=== PATIENT | female | born 1955 | race Caucasian/White ===

== ENCOUNTER → 2017-01-04 | Outpatient (CLI) | payer MEDICARE ==
[2017-01-04 15:05] VITALS: BP 127/79; PULSE 85; RESP 18; TEMP 98.3
--- NOTE | 2017-01-05 10:58 | P.PN ---
Subjective This is follow-up visit for this patient with a history of severe and chronic low back pain secondary to failed back surgery syndrome , Lumbar area , and had intrathecal pain pump implanted several years ago and she is currently on intrathecal morphine , A few weeks ago , she was seen in the pain clinic and she is scheduled to have thoracic medial branch block, because patient is Complaining of severe mid back pain on top of her low back pain, patient reported that her pain is constant and increases with any Activity, she is concerned about her copayment for the procedure, she has to pay 20% copayment, and financially she cannot Afford to pay 20% of the cost, and she is questioning if he can do something else to help her mid back pain Patient denies any side effects of the medication, denies excessive drowsiness or sleepiness, denies suicidal ideation, and reports that the current pain medication is NOT helping To control the pain and improve activity of daily livin Physical Examinations : 1-Constitutiona : Cooperative , not in acute distress . 2-HEENT : nech ; supple , no Lymphadenopathy , no Thyromegaly , normal thyroid size . eyes : no ptosis , no icterus, no photophobia . ENT : normal of hearing , normal oropharynx , no Thrush . 3- Respiratory : Chest clear to auscultations Bilaterally , no wheezing , no Rhonchi . 4- Cardiovascular : regular rate and rhythem , S1 , S2 , no S3 , no S4. 5- Gastrointestinal : abdomen soft no tenderness , bowel sounds positive all four quadrents , no organomegally . 6- Genitourinary : Defferred . 7- neurologic : Cranial nerve II to XII intact , no focal neurological deffecit . 8-psychatric : alert , oriented X 3 , appropriate affect , intact judgment and insight . 9-Lymphatic : no Lymphadenopathy . 10- musculoskeltal : exams of the cervical spine = motor strength normal bilateral upper extremities facet loading test cervical area positive. Exams of the thoracic spine = positive facet loading test noted on upper thoracic levels right side> left side exams of the Lumber spine = motor strength lower extremities ,thigh and legs .4-5/5 deep tendon reflexes : normal Knee Jerk , normal ankle Jerk . lumber facet Loading Test positive strait leg raising test positive at 30 degree , RT ,LT , Fabere test positive RT and positive LT . Range of motion: Range of motion in flexion of the lumbar spine 30 degrees Range of motion range of motion of extension of the lumbar spine 10 Sever tenderness over the Sacroiliac joint on the Right , and Left side Assessment and plan = - Chronic low back pain secondary to failed back surgery syndrome lumbar area Mid back pain secondary to thoracic spondylosis - chronic and current use of high-risk medication (Opioids). Patient will be good candidate to have thoracic diagnostic medial branch block, but she is concerned about the cost and the Copayment for the procedure, and financially she cannot afford the, and discussed with the patient the option of increasing The intrathecal pain medication, The intrathecal pain pump analyzed= patient had morphine sulfate 15 mg per mL and , morphine daily 6.59 mg per day Bupivacaine 7 mg per mL and patient receiving Cipro 07 mg per day. Patient had residual volume of 25 ML I increased the dose to morphine sulfate 7.2 mg /day and bupivacaine to 3,36 milligrams per day The increase of her daily dose of 9% and patient will follow up with the pain clinic in 2 months Objective - Vital Signs Vital signs: Vital Signs Temp 98.3 F 01/04/17 14:54 Pulse 85 01/04/17 14:54 Resp 18 01/04/17 14:54 BP 127/79 01/04/17 14:54 Pulse Ox Intake & Output 01/04/17 01/05/17 01/05/17 18:59 06:59 18:59 Weight 74.843 kg
== END | disposition home or self-care (01) ==
LOC: PNWHC3 14:28
PROVIDERS: ATTEND Specialist
DX: M96.1 Postlaminectomy syndrome, not elsewhere classified (principal); M47.894 Other spondylosis, thoracic region; Z96.89 Presence of other specified functional implants; Z79.891 Long term (current) use of opiate analgesic
CPT/HCPCS: 99211

== ENCOUNTER → 2017-01-17 | Outpatient (CLI) | payer MEDICARE ==
[2017-01-17 12:27] VITALS: BP 125/66; RESP 16; TEMP 98.7
--- NOTE | 2017-01-17 12:51 | P.PN ---
Progress Note - Text Patient returns for followup for chronic low back and mid-back pain with radiation to both legs secondary to lumbar postlaminectomy syndrome. Patient's pump recently increased 9% by Dr. Coleman at last visit because patient is still having mid-back pain and cannot afford to undergo thoracic MBB. Patient continues on IT pump medications (Dilaudid/bupivacaine) and oxycodone IR for pain with only some relief. Patient denies adverse drug effects from medications. Today, pt denies new-onset weakness, bowel/bladder incontinence, or any other signs or symptoms of cauda equina syndrome. There are no signs of acute intoxication, and no indications of medication diversion or overuse. In addition to above, 13-point review of systems is also negative for chest pain , shortness of breath, changes in vision, changes in hearing, new onset weakness , abdominal pain, diarrhea, extreme fatigue, malaise, fever, skin changes, homicidal or suicidal ideation, or bowel or bladder incontinence. Vital Signs: Reviewed in EMR Gen: WDWN, AAOx3, NAD HEENT: NCAT, EOMI, hearing grossly normal Pulm: resp unlabored Abd: soft, NT, ND Neck: supple, trachea midline ROM in flexion thoracic spine: reduced ROM in extension thoracic spine: reduced Thoracic paravertebral tenderness: + Thoracic facet tenderness: + bilateral Neuro: CN II-XII grossly intact, muscle strength lower extremities PRESERVED Imaging: Reviewed in EMR Assessment: 1. thoracic spondylosis 2. postlaminectomy syndrome 3. chronic pain syndrome Plan: 1. Explanation: Opioid and psychological risk scores were reviewed. Diagnoses , prognoses, and multiple treatment options including but not limited to physical therapy, interventional therapies, adjuvant medical therapies, narcotic medication therapies, and surgery were discussed with the patient and all questions were answered to the patient's satisfaction. 2. Opioid agreement: Patient has previously signed narcotic agreement, and was orally counseled to not overuse, abuse, divert, or cell medications, and to take them as prescribed by only 1 healthcare provider. The patient was also counseled to store opioid medications in a safe and preferably locked location. Patient was also counseled against driving or operating heavy equipment while using narcotic medications and also to not use alcohol or any illicit or recreational drugs. The patient verbalized understanding that lack of compliance with any of the above and likely result in failure to renew narcotic prescriptions, possible discharge from the clinic, and possible legal ramifications thereafter if indicated. 3. Counseling: The patient was counseled extensively on BODY MASS INDEX, EXERCISE. Specifically, the patient was instructed regarding the importance of obesity, and exercise in the context of both chronic pain and overall health. 4. Procedures: none for now 5. Consultations: None 6. Investigations: None 7. Medications: will leave intrathecal pump at same dose and change oxycodone 30 mg q6h to Dilaudid 8 mg po q6h for breakthrough pain 8. Disposition: f/u for pump refill in next 4 weeks PQRS measures: 1-Patient's medications are documented in the chart. 2-Tobacco use is negative 3-Patient has not had a pneumococcal vaccine. 4-Advanced care planning discussed, patient unable to give. 5-Opioid contract signed with the patient. 6-Pain positive, follow-up visit or procedure scheduled 7-Patient's blood pressure measured and documented, and within normal limits. 8-Patient's weight was measured, and body mass index within the normal limits. 9-Patient WAS NOT identified as an unhealthy alcohol user.
[2017-01-17 13:26] VITALS: PULSE 72
== END | disposition home or self-care (01) ==
LOC: PNWHC3 12:09
PROVIDERS: ATTEND Anesthesiology
DX: G89.29 Other chronic pain (principal); Z79.891 Long term (current) use of opiate analgesic; M47.894 Other spondylosis, thoracic region; M96.1 Postlaminectomy syndrome, not elsewhere classified; Z71.3 Dietary counseling and surveillance
CPT/HCPCS: 80307; G0463; 80346; 80364; 99211

== ENCOUNTER → 2017-02-16 | Day surgery (SDC) | payer MEDICARE ==
[2017-02-16 13:35] VITALS: BP 143/64; PULSE 80; RESP 18; TEMP 99
--- NOTE | 2017-02-16 14:13 | P.PN ---
Progress Note - Text PROCEDURE: Intrathecal pain pump analysis, programming and reprogramming, and intrathecal pain pump refill. PREOPERATIVE DIAGNOSES: 1. near empty intrathecal pain pump time for refill. 2. opioid tolerance 3. chronic pain syndrome POSTOPERATIVE DIAGNOSES: 1. near empty intrathecal pain pump time for refill. 2. opioid tolerance 3. chronic pain syndrome ANESTHESIA: None. CONDITION: Stable. INDICATION: This is a 61-year-old patient with a long history of chronic pain secondary to postlaminectomy syndrome Patient previously had an intrathecal pump placed, which is now close to empty, and patient presents for refill today. Patient denies any side effects of the intrathecal medication, including new weakness, new numbness, excessive drowsiness or sleepiness, nausea/vomiting , weight gain, or night sweats. Patient also denies suicidal ideation, and reports that the current pain medication is helping control the chronic pain and improve the patient's activities of daily living. DESCRIPTION: The intrathecal pain pump was analyzed and showed that the patient currently has reservoir volume of [4.5] mL. The patient is receiving intrathecal Morphine sulfate PF at concentration [15] mg/ ml, and bupivacaine PF at concentration [7] mg/ml. Patient receiving daily dose of Morphine Sulfate [7.2] mg/day and bupivacaine [3.36] mg/day. The location of the pump (right buttock) was prepped with chlorhexidine x3. Then, the 22-gauge needle from the [employer] kit was advanced through the pump port. Total of [10] ml was removed from the pump, and it was refilled with the new medication total volume of [40] ml of a solution containing morphine sulfate at concentration [15] mg /ml and bupivacaine at concentration [7] mg/ml. The patient will continue with the same daily dose morphine [7.2] mg/day and bupivacaine [3.34] mg/day. Patient got little relief from oral hydromorphone, so will change to oral morphine 30 mg #120 with one refill. Patient will follow up for ITP refill in 8 weeks. Residual volume expected much less than actual volume (4.5 vs. 10 ml) today; please evaluate at next refill.
== END ==
LOC: PNWHC3 12:59
PROVIDERS: ATTEND Anesthesiology
DX: Z45.49 Encounter for adjustment and management of other implanted nervous system device (principal); G89.4 Chronic pain syndrome; Z79.891 Long term (current) use of opiate analgesic
CPT/HCPCS: 62370

== ENCOUNTER → 2017-02-22 | Outpatient (CLI) | payer MEDICARE ==
--- NOTE | 2017-02-24 07:45 | MM ---
Reason for exam: screening (asymptomatic). Last mammogram was performed 2 years and 3 months ago. History: Patient is postmenopausal and has history of endometrial cancer at age 25. Family history of breast cancer in mother at age 68. Took estrogen for 8 months beginning at age 20. Physical Findings: A clinical breast exam by your physician is recommended on an annual basis and results should be correlated with mammographic findings. MG 3D Screening Mammo W/Cad Bilateral CC and MLO view(s) were taken. Prior study comparison: November 19, 2014, bilateral MG screening mammo w CAD. June 19, 2013, bilateral digital screening mammo w/CAD. August 26, 2011, bilateral digital screening mammo w/CAD. May 22, 2010, bilateral digital screening mammogram. The breast tissue is heterogeneously dense. This may lower the sensitivity of mammography. No significant changes when compared with prior studies. ASSESSMENT: Negative, BI-RAD 1 RECOMMENDATION: Routine screening mammogram of both breasts in 1 year. Manage on a clinical basis with regard to right breast pain.
== END | disposition home or self-care (01) ==
LOC: RADMAMWWP 14:22
PROVIDERS: ATTEND Internal Medicine
DX: Z12.31 Encounter for screening mammogram for malignant neoplasm of breast (principal)
CPT/HCPCS: 77063; G0202

== ENCOUNTER → 2017-03-30 | Outpatient (CLI) | payer MEDICARE ==
[2017-03-30 12:02] VITALS: BP 172/92; PULSE 93; RESP 16
--- NOTE | 2017-03-31 09:48 | P.CONS ---
History of Present Illness - Reason for Consult Consult date: 03/30/17 - History of Present Illness This is a follow-up visit for this 61 years old female with a chronic history of severe low back pain, diagnosed with opioid Tolerance, failed back surgery syndrome and lumbar area, currently on intrathecal pain pump infusion, and she was brought to the pain clinic for evaluation because patient reported that she had to use her low back pain significantly, and she she feels very irritable, and she is concerned about withdrawal symptoms, she'll been on continuous infusion of intrathecal pain medications, morphine sulfate intrathecally 7.2 milligrams daily, and bupivacaine 3,34 mg daily, fish was getting MS IR 30 mg every 6 hours for breakthrough pain , she feels the current pain medication is not helping her at all, she had one episode when she fell and she did not have control over her lower extremities, currently she is able to walk and ambulate without any difficulty, and she had no motor deficit Past Medical History Past Medical History: Cancer, CVA/TIA, Liver Disease, Musculoskeletal Disorder, Osteoarthritis (OA) Additional Past Medical History / Comment(s): hx. hepatitis B at age 15, DDD, hx cervical cancer,several mini strokes History of Any Multi-Drug Resistant Organisms: None Reported Past Surgical History: Appendectomy, Back Surgery, Bowel Resection, Cholecystectomy, Hysterectomy Additional Past Surgical History / Comment(s): pain pump, mutiple female surgeries Past Anesthesia/Blood Transfusion Reactions: No Reported Reaction Past Psychological History: Anxiety Smoking Status: Never smoker Past Alcohol Use History: Occasional Additional Past Alcohol Use History / Comment(s): quit smoking 32 yrs ago Past Drug Use History: None Reported - Past Family History Mother Family Medical History: Cancer Additional Family Medical History / Comment(s): breast Sister(s) Family Medical History: Cancer, Deep Vein Thrombosis (DVT), Pulmonary Embolus Additional Family Medical History / Comment(s): ovarian ca, skin ca Father Family Medical History: Cancer Additional Family Medical History / Comment(s): skin Medications and Allergies Home Medications Medication Instructions Recorded Confirmed Type Intrathecal Opoid Pain Pump INTRATHECA CONTINUOUS 04/17/14 06/16/16 History clonazePAM [KlonoPIN] 1 mg PO DAILY PRN 07/30/15 03/30/17 History Citalopram Hydrobromide [CeleXA] 10 mg PO DAILY 06/16/16 03/30/17 History Lisinopril-Hctz 10-12.5 mg 1 tab PO DAILY 12/01/16 03/30/17 History [Zestoretic 10-12.5] Allergies Allergy/AdvReac Type Severity Reaction Status Date / Time tetracycline [Tetracycline] Allergy Nausea & Verified 03/30/17 11:48 Vomiting Physical Exam Vitals: Vital Signs Pulse Resp BP Pulse Ox 03/30/17 11:52 93 16 172/92 95 Physical Examinations : 1-Constitutiona : Cooperative , not in acute distress . 2-HEENT : nech ; supple , no Lymphadenopathy , normal thyroid size . eyes : no ptosis , no icterus, no photophobia . ENT : normal of hearing , normal oropharynx , no Thrush . 3- Respiratory : Chest clear to auscultations Bilaterally , no wheezing , no Rhonchi . 4- Cardiovascular : regular rate and rhythem , S1 , S2 , no S3 , no S4. 5- Gastrointestinal : abdomen soft no tenderness , bowel sounds positive all four quadrents , no organomegally . 6- Genitourinary : Defferred . 7- neurologic : Cranial nerve II to XII intact , no focal neurological deffecit . 8-psychatric : alert , oriented X 3 , appropriate affect , intact judgment and insight . 9-Lymphatic : no Lymphadenopathy . 10- musculoskeltal : exams of the Lumber spine = normal moter stegnth lower extremities ,thigh and legs .5/5 deep tendon reflexes : normal Knee Jerk , normal ankle Jerk . positive lumber facet Loading Test strait leg raising test positive at 30 degree , RT ,LT , Fabere test positive RT and positive LT . Sever tenderness over the Sacroiliac joint on the Right , and Left side Assessment and Plan Plan: Assessment and plan = - Chronic low back pain secondary to lumbar degenerative disc disease , lumbar spondylosis with facet arthropathy without myelopathy , failed back surgery syndrome lumbar, is currently patient reporting increase of her low back pains, recurrent breakthrough medication is not helping -chronic and current use of high-risk medication (Opioids). The patient was counseled about risk of opioid use, psychological risk associated with opioids discussed with the patient, body mass index and exercise. Patient signed the narcotic agreement , and was orally counseled not to overuse , abuse , divert, or sell medications ,and take them as prescribed only , and the patient was counseled against driving and while you are using the narcotic medication also not to use alcohol or any illicit drugs and the patient verbalized understanding that lack of compliance and could result in failure to renew narcotics prescriptions and possible discharge from the clinic - diagnoses, prognosis, and treatment options including but not limited to physical therapy, surgical interventions, interventional therapies and medication management including narcotics and adjuvant medication were discussed with the patient and all questions answered to the patient's satisfaction. -medication managements= discontinue MSIR , start patient on Oxycodon 30 mg every 6 hours -procedure= discussed with patient the need to do a dye study, evaluate the intrathecal pump. There is any leakage or disconnection in the catheter, patient is concerned about the cost of the procedure and she cannot afford the copayment for the test, she preferred to wait the results of the changing of that pain medication, he gets reasonable pain relief then we don't have to do with a dye study otherwise if she continued to have pain , we have to do a dye study Time with Patient: Less than 30
== END | disposition home or self-care (01) ==
LOC: PNWHC3 11:26
PROVIDERS: ATTEND Specialist
DX: M51.36 Other intervertebral disc degeneration, lumbar region (principal); M47.816 Spondylosis without myelopathy or radiculopathy, lumbar region; M46.86 Other specified inflammatory spondylopathies, lumbar region; Z79.899 Other long term (current) drug therapy; Z88.1 Allergy status to other antibiotic agents; Z86.73 Personal history of transient ischemic attack (TIA), and cerebral infarction without residual deficits
CPT/HCPCS: 99211

== ENCOUNTER → 2017-04-13 | Day surgery (SDC) | payer MEDICARE ==
[2017-04-13 11:56] VITALS: BP 145/74; PULSE 84; RESP 18; TEMP 98.5
--- NOTE | 2017-04-13 12:59 | P.PCN ---
Date of Procedure: 04/13/17 Preoperative Diagnosis: Postoperative Diagnosis: Procedure(s) Performed: OPERATION: Intrathecal pain pump analysis, programming and reprogramming, and intrathecal pain pump refill. PREOPERATIVE DIAGNOSES: 1. near empty intrathecal pain pump time for refill. 2. 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 near empty intrathecal pain pump time for refill. 2. 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 CONDITION: Stable. Description of the procedure; Intrathecal pain pump analysed ,it showed patient currently had reservoir volume 13.2 mL. The patient is receiving medication .PF morphine sulfate [ 15 ] mg/ ml, and bupivacaine concentration [ 7 ] mg/ml. Patient receiving daily dose of morphine sulfate 7,2 mg/day and bupivacaine [ 3.3 ] mg/day. Pain is well controlled , patient using medication for breakthrough pain oxycodone 30 mg every 6 hours orally . The location of the pump ( Right Buttuck ) Prepped with chlorhexidine x3 , then using 22-gauge needle [employer] kit advanced through the pump port, Total of [ 14 ] ml removed from the pump, the pump refills with the new medication total volume [ 40 ] ml . Patient continued to have pain all the time her pain 8/10 most of the time, and is not managed with the oxycodone The concentration of morphine sulfate 15 mg /ml , and the bupivacaine concentration [ 7 ] mg/ml. The patient will continue to see the daily dose morphine sulfate 8 mg/day and bupivacaine [ 3.7 ] mg/day and patient will follow up with the pain clinic in 3 months. Prescription refill for oxycodone 30 mg every 6 hours dispensed 150 with 2 refills, Neurontin 300 mg 3 times a day dispense 90 with 2 refill, Zanaflex 4 mg every 6 hours Asians reported that she continued to have pain all the time I discussed with the patient ,the need to do the dye study ,but she is concerned about the cost ([employer] payments ), and she prefer not to do it" , , ,I increased dose of intrathecal medication equal to 11%, this should improve her pain control, and the next visit we will change the intrathecal pain medication to fentanyl, the bupivacaine Implants: Indications for Procedure: Operative Findings: Description of Procedure:
== END ==
LOC: PNWHC3 11:12
PROVIDERS: ATTEND Specialist
DX: M96.1 Postlaminectomy syndrome, not elsewhere classified (principal); Z45.1 Encounter for adjustment and management of infusion pump; Z79.891 Long term (current) use of opiate analgesic
CPT/HCPCS: 62370

== ENCOUNTER → 2017-06-08 | Day surgery (SDC) | payer MEDICARE ==
[2017-06-08 14:18] VITALS: BP 157/83; PULSE 88; RESP 16; TEMP 98.4
--- NOTE | 2017-06-08 14:49 | P.PN ---
Progress Note - Text PROCEDURE: Intrathecal pain pump analysis, programming and reprogramming, and intrathecal pain pump refill. PREOPERATIVE DIAGNOSES: 1. near empty intrathecal pain pump time for refill. 2. opioid tolerance 3. chronic pain syndrome POSTOPERATIVE DIAGNOSES: 1. near empty intrathecal pain pump time for refill. 2. opioid tolerance 3. chronic pain syndrome ANESTHESIA: None. CONDITION: Stable. INDICATION: This is a 61-year-old patient with a long history of chronic pain secondary to postlaminectomy syndrome Patient previously had an intrathecal pump placed, which is now close to empty, and patient presents for refill today. Patient denies any side effects of the intrathecal medication, including new weakness, new numbness, excessive drowsiness or sleepiness, nausea/vomiting , weight gain, or night sweats. Patient also denies suicidal ideation, and reports that the current pain medication is helping control the chronic pain and improve the patient's activities of daily living. DESCRIPTION: The intrathecal pain pump was analyzed and showed that the patient currently has reservoir volume of [10.1] mL. The patient is receiving intrathecal Morphine sulfate PF at concentration [15] mg/ ml, and bupivacaine PF at concentration [7] mg/ml. Patient receiving daily dose of Morphine Sulfate [8] mg/day and bupivacaine [ 3.5] mg/day. The location of the pump (right buttock) was prepped with chlorhexidine x3. Then, the 22-gauge needle from the [employer] kit was advanced through the pump port. Total of [12.9] ml was removed from the pump, and it was refilled with the new medication total volume of [40] ml of a solution containing fentanyl at concentration [200] mcg /ml and bupivacaine at concentration [4] mg/ml. The patient will be changed to daily dose fentanyl [25] mcg/day and bupivacaine [0.5] mg/day. Bridge bolus will complete in approximately 16 hours ; I instructed patient to have a friend or family member near her at 7 AM tomorrow morning in case she has any issues with the new intrathecal fentanyl. Patient given prescriptions for oxycodone 30 mg #120 with one refill, along with gabapentin and tizanidine both with five refills. Patient will follow up for ITP adjustment in 1-2 weeks.
== END ==
LOC: PNWHC3 12:58
PROVIDERS: ATTEND Anesthesiology
DX: G89.4 Chronic pain syndrome (principal); Z45.1 Encounter for adjustment and management of infusion pump; M96.1 Postlaminectomy syndrome, not elsewhere classified; Z79.891 Long term (current) use of opiate analgesic
CPT/HCPCS: 62370

== ENCOUNTER → 2017-06-21 | Outpatient (CLI) | payer MEDICARE ==
[2017-06-21 12:17] VITALS: BP 167/95; PULSE 87; RESP 16; TEMP 98.4
--- NOTE | 2017-06-21 13:16 | P.PN ---
Progress Note - Text This is a 61-year-old female with history of failed back surgery syndrome and multiple areas of severe pain. The patient fell and broke her left clavicle about 2 months ago. She has intrathecal opioid pump that was recently changed to diffuse fentanyl and bupivacaine. Currently she gets 25 g of fentanyl every day. The patient states that her pain is out of control and she still uses oxycodone 30 mg 4 times a day. She still has a prescription to be picked up from the pharmacy tomorrow as she states. Neuro exam of the lower extremities showed areflexia and muscle strength to 4 out of 5 for knee flexion and extension ankle flexion and extension and hip flexion bilaterally and symmetrically. Today I will increase the infusion rate of fentanyl to 30 g over 24 hours I'll give her a bolus of 5 g of fentanyl over 2 hours. If her pain continues to be a problem then I might need to do a pump dye study and an MRI of the lumbar spine. We will see the patient on 07/11/2017.
== END ==
LOC: PNWHC3 11:28
PROVIDERS: ATTEND Anesthesiology
DX: R52 Pain, unspecified (principal)
CPT/HCPCS: 99211

== ENCOUNTER → 2017-07-11 | Outpatient (CLI) | payer MEDICARE ==
[2017-07-11 12:08] VITALS: BP 135/83; PULSE 90; RESP 16; TEMP 97.9
--- NOTE | 2017-07-11 14:17 | P.PN ---
Subjective This is follow-up visit for this 61 years old female with a chronic history of severe back pain secondary to failed back surgery syndrome lumbar area, she had the intrathecal pain pump, and she is currently on continuous infusion of fentanyl 30 g per day and bupivacaine 0.6 mg per day, which was increased from that before and patient reported that she has some improvement after the increase that is done last visit, he continued to have significant amount of pain especially in the low back area, denies any motor or sensory deficit she denies any change in the bowel movement or urination, and she is here today to have intrathecal pain pump dose adjusted, intrathecal pain pump analyzed showed patient currently on fentanyl concentration 200 g per mL and bupivacaine concentration 4 mg per mL, receiving a daily dose of fentanyl 30 g per day and bupivacaine 0.6 mg per day, after I interrogated the pump I increased the daily dose of fentanyl to 14 g per day and increase the bupivacaine, 0.79 mg /day . Patient already had an appointment scheduled for intrathecal pain pump refill in August 2017, and she will be seen in the pain clinic today on the pump refill Objective - Vital Signs Vital signs: Vital Signs Temp 97.9 F 07/11/17 12:04 Pulse 90 07/11/17 12:04 Resp 16 07/11/17 12:04 BP 135/83 07/11/17 12:04 Pulse Ox 96 07/11/17 12:04 Intake & Output 07/10/17 07/11/17 07/11/17 18:59 06:59 18:59 Weight 72.575 kg
== END ==
LOC: PNWHC3 11:36
PROVIDERS: ATTEND Specialist
DX: M54.9 Dorsalgia, unspecified (principal); Z79.899 Other long term (current) drug therapy
CPT/HCPCS: 62367

== ENCOUNTER → 2017-08-31 | Day surgery (SDC) | payer MEDICARE ==
[2017-08-31 13:27] VITALS: BP 108/56; PULSE 75; RESP 16
--- NOTE | 2017-08-31 14:01 | P.PCN ---
Date of Procedure: 08/31/17 Procedure(s) Performed: OPERATION: Intrathecal pain pump analysis, programming and reprogramming, and intrathecal pain pump refill. PREOPERATIVE DIAGNOSES: 1. near empty intrathecal pain pump time for refill. 2. 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 near empty intrathecal pain pump time for refill. 2. 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 CONDITION: Stable. Description of the procedure; Intrathecal pain pump analysed ,it showed patient currently had reservoir volume[ ] mL. The patient is receiving medication Fentanyle 200 mcg / ml, and bupivacaine concentration 4 mg/ml. Patient receiving daily dose of fentanyl 40 g/day and bupivacaine 0,8 mg/ day. Pain is well controlled , patient using oxycodone 15 mg every 4-6 hours for breakthrough pain orally . Zanaflex 4 mg every 6 hours, Neurontin 300 mg every 8 hours The location of the pump ( Right Buttuck ) Prepped with chlorhexidine x3 , then using 22-gauge needle [employer] kit advanced through the pump port, Total of 25 ml removed from the pump, the pump refills with the new medication total volume [ 40 ] ml . The concentration of fentanyl 200 g /ml , and the bupivacaine concentration 4 mg/ml. The patient will continue to see the daily dose fentanyl 50 g/day , and bupivacaine 1mg/day this is 25 % increase , post patient reported that her pain increased and the current medication is not helping enough to control her pain , and patient will follow up with the pain clinic in 3 months. Prescription refill for oxycodone 30 mg every 4-6 hours dispense 150 with 2 refills given, Neurontin 300 mg every 8 hours dispense 90 with 2 refills given , and Zanaflex 4 mg every 6 hours dispense 120 with 2 refills
== END ==
LOC: PNWHC3 12:42
PROVIDERS: ATTEND Specialist
DX: Z45.49 Encounter for adjustment and management of other implanted nervous system device (principal); M96.1 Postlaminectomy syndrome, not elsewhere classified; Z79.891 Long term (current) use of opiate analgesic
CPT/HCPCS: 62370

== ENCOUNTER → 2017-11-17 | Day surgery (SDC) | payer MEDICARE ==
--- NOTE | 2017-11-17 12:38 | P.PCN ---
Date of Procedure: 11/17/17 Procedure(s) Performed: OPERATION: Intrathecal pain pump analysis, programming and reprogramming, and intrathecal pain pump refill. PREOPERATIVE DIAGNOSES: 1. near empty intrathecal pain pump time for refill. 2. 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 near empty intrathecal pain pump time for refill. 2. 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 CONDITION: Stable. Description of the procedure; Intrathecal pain pump analysed ,it showed patient currently had reservoir volume 20 mL. The patient is receiving medication Fentanyl 200 mcg/ ml, and bupivacaine concentration [ 4 ] mg/ml. Patient receiving daily dose of 50 mcg/day and bupivacaine 1 mg/day. Pain is well controlled , patient using medication for breakthrough pain [ oxycodone 30 mg q 4 h ] orally . The location of the pump ( Right Buttuck ) Prepped with chlorhexidine x3 , then using 22-gauge needle [employer] kit advanced through the pump port, Total of [ 21 ] ml removed from the pump, the pump refills with the new medication total volume [40 ] ml . The concentration fentanyl 200 mcg /ml , and the bupivacaine concentration [ 4] mg/ml. The patient will continue to see the daily dose fentanyl [50 ] mcg/day and bupivacaine [1 ] mg/day and patient will follow up with the pain clinic in 3 months. Refill for oxycodone 30 mg every 4 hours dispense 150 with 2 refill, Neurontin 300 mg every 8 hours thank you T with 2 refills and Zanaflex 4 mg every 6 hours dispense 120 with 2 refills and she will follow up in the pain clinic in 3 months
[2017-11-17 16:37] VITALS: BP 155/94; PULSE 84; RESP 16
== END ==
LOC: PNWHC3 11:25
PROVIDERS: ATTEND Specialist
DX: M96.1 Postlaminectomy syndrome, not elsewhere classified (principal); Z45.1 Encounter for adjustment and management of infusion pump; Z79.891 Long term (current) use of opiate analgesic
CPT/HCPCS: 62370

== ENCOUNTER → 2018-02-15 | Day surgery (SDC) | payer MEDICARE ==
[2018-02-15 12:28] VITALS: BP 146/76; PULSE 80; RESP 18; TEMP 98.7
--- NOTE | 2018-02-15 12:47 | P.PN ---
Progress Note - Text Progress Note Date: 02/15/18 PROCEDURE: Intrathecal pain pump analysis, programming and reprogramming, and intrathecal pain pump refill. PREOPERATIVE DIAGNOSES: 1. near empty intrathecal pain pump time for refill. 2. opioid tolerance 3. chronic pain syndrome POSTOPERATIVE DIAGNOSES: 1. near empty intrathecal pain pump time for refill. 2. opioid tolerance 3. chronic pain syndrome ANESTHESIA: None. CONDITION: Stable. INDICATION: This is a 62-year-old patient with a long history of chronic pain secondary to postlaminectomy syndrome Patient previously had an intrathecal pump placed, which is now close to empty, and patient presents for refill today. Patient denies any side effects of the intrathecal medication, including new weakness, new numbness, excessive drowsiness or sleepiness, nausea/vomiting , weight gain, or night sweats. Patient also denies suicidal ideation, and reports that the current pain medication is helping control the chronic pain and improve the patient's activities of daily living. DESCRIPTION: The intrathecal pain pump was analyzed and showed that the patient currently has reservoir volume of [17.5] mL. The patient is receiving intrathecal fentanyl PF at concentration [200] mcg/ ml , and bupivacaine PF at concentration [4] mg/ml. Patient receiving daily dose of fentanyl [50] mg/day and bupivacaine [1] mg/ day. The location of the pump (right buttock) was prepped with chlorhexidine x3. Then, the 22-gauge needle from the [employer] kit was advanced through the pump port. Total of [18.5] ml was removed from the pump, and it was refilled with the new medication total volume of [40] ml of a solution containing fentanyl at concentration [200] mcg /ml and bupivacaine at concentration [4] mg/ml. The patient will be increased 15% with daily dose fentanyl [57.5] mcg/day and bupivacaine [1.15] mg/day. Will reduce patient's oxycodone to 30 mg #120 with two refills and anticipate increasing pump and decreasing patient's oxycodone 30 mg again to #90 at next refill in three months. Will give gabapentin and tizanidine both with five refills. Patient is also requesting Ambien, last prescribed February 2017. Patient is on extremely high doses of intrathecal, oral opioid, benzodiazepine medications ( last from another provider) and I do not feel that we should continue prescribing this medication due to concern for excessive sedation and overmedication. Patient also counseled about risks of respiratory depression and utilizing both high-dose opioids and benzodiazepines and she verbalized understanding.
== END | disposition home or self-care (01) ==
LOC: PNWHC3 11:54
PROVIDERS: ATTEND Anesthesiology
DX: Z45.1 Encounter for adjustment and management of infusion pump (principal); G89.4 Chronic pain syndrome; M96.1 Postlaminectomy syndrome, not elsewhere classified
CPT/HCPCS: 62370

== ENCOUNTER → 2018-03-22 | Outpatient (CLI) | payer MEDICARE ==
[2018-03-22 13:13] VITALS: BP 123/76; PULSE 73; RESP 16
--- NOTE | 2018-03-22 14:46 | P.PN ---
Subjective Progress Note Date: 03/22/18 This is 62 years old female with a chronic history of severe low back pain diagnosed with failed back surgery syndrome and opioid tolerance, she is currently on intrathecal pain medication, fentanyl and bupivacaine, and she is getting oral pain medication oxycodone 30 mg every 6 hours when necessary, recently she had left upper extremity/wrist fracture, and the intensity of the pain increased significantly and she is here today to address the increased pain in her left upper extremity which is not managed with oral pain medication , I interrogated the intrathecal pain pump and it showed patient currently on continuous infusion of fentanyl and 57 g per day and bupivacaine 1.15: Milligrams per day, she denies any side effect of the medication she denies any excessive drowsiness or sleepiness and she is currently on Zanaflex 4 mg every 6 hours and oxycodone 30 mg every 6 hours, Neurontin 300 mg 3 times a day, she reported her pain level and was severe and she has trouble sleeping at night because of the intensity of the pain Objective - Vital Signs Vital signs: Vital Signs Temp Pulse 73 03/22/18 13:05 Resp 16 03/22/18 13:05 BP 123/76 03/22/18 13:05 Pulse Ox 100 03/22/18 13:05 Intake & Output 03/21/18 03/22/18 03/22/18 18:59 06:59 18:59 Weight 72.575 kg - Exam Physical Examinations : 1-Constitutiona : Cooperative , not in acute distress . 2-HEENT : nech ; supple , no Lymphadenopathy , normal thyroid size . eyes : no ptosis , no icterus, no photophobia . ENT : normal of hearing , normal oropharynx , no Thrush . 3- Respiratory : Chest clear to auscultations Bilaterally , no wheezing , no Rhonchi . 4- Cardiovascular : regular rate and rhythem , S1 , S2 , no S3 , no S4. 5- Gastrointestinal : abdomen soft no tenderness , bowel sounds , no organomegally . 6- Genitourinary : Defferred . 7- neurologic : Cranial nerve II to XII intact , no focal neurological deffecit . 8-psychatric : alert , oriented X 3 , appropriate affect , intact judgment and insight . 9-Lymphatic no Lymphadenopathy . 10- musculoskeltal : , Lumber spine = normal moter stegnth lower extremities ,thigh and legs .5/5 Assessment and Plan Plan: Assessment and plan= chronic low back pain secondary to, failed back surgery syndrome and lumbar area , opioid tolerance, and chronic pain syndrome Acute left wrist fracture chronic and current use of high-risk medication (opioids) Patient denies any side effects of the current pain medication and the current treatment/medication helping the patient to do activity of daily living , Patient report the current medication is not helping enough, I will increase the intrathecal pain pump to fentanyl 75 g per day , and bupivacaine 1.5 mg per day , which is equal to 30% increase from her previous dose , patient will continue to use oxycodone 30 mg every 6 hours, next visit we'll decrease the oxycodone to 90 per months Time with Patient: Less than 30
== END | disposition home or self-care (01) ==
LOC: PNWHC3 12:53
PROVIDERS: ATTEND Specialist
DX: G89.4 Chronic pain syndrome (principal); M96.1 Postlaminectomy syndrome, not elsewhere classified; S62.102A Fracture of unspecified carpal bone, left wrist, initial encounter for closed fracture; Z79.899 Other long term (current) drug therapy; Z79.891 Long term (current) use of opiate analgesic
CPT/HCPCS: 62368

== ENCOUNTER → 2018-05-10 | Day surgery (SDC) | payer MEDICARE ==
[2018-05-10 12:44] VITALS: PULSE 90; RESP 16
--- NOTE | 2018-05-11 14:47 | P.PCN ---
Date of Procedure: 05/10/18 Procedure(s) Performed: OPERATION: Intrathecal pain pump analysis, programming and reprogramming, and intrathecal pain pump refill. PREOPERATIVE DIAGNOSES: 1. near empty intrathecal pain pump time for refill. 2. 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 ANESTHESIA: None. CONDITION: Stable. Description of the procedure; Intrathecal pain pump analysed ,it showed patient currently had reservoir volume[ ] mL. The patient is receiving medication fentanyl PM 200 g/ ml, and bupivacaine concentration [4 ] mg/ml. Patient receiving daily dose of fentanyl 75 g/day and bupivacaine [1.5 ] mg/ day. Pain is well controlled , patient using medication for breakthrough pain oxycodone 30 mg every 6 hours orally . Zanaflex 4 mg every 6 hours, Neurontin 300 mg every 8 hours The location of the pump ( Right Buttuck ) Prepped with chlorhexidine x3 , then using 22-gauge needle [employer] kit advanced through the pump port, Total of 13 ml removed from the pump, the pump refills with the new medication total volume [40 ] ml . The concentration of fentanyl 200 g /ml , and the bupivacaine concentration [ 4] mg/ml. Patient reported that her pain level is extremely high and the intensity of the pain interfering with her quality of life and the breakthrough medication is not helping to control her pain, for this reason I will increase the dose of intrathecal medication to fentanyl 100 g every day, and bupivacaine 1.9 mg per day This is equals 33% increase, Patient given prescription refill for oxycodone 30 mg every 6 hours dispense 120 with one refill and Zanaflex 4 mg every 6 hours dispensed 120 with one refill Neurontin 300 mg every 8 hours dispense 90 with 1 refill
== END ==
LOC: PNWHC3 11:50
PROVIDERS: ATTEND Specialist
DX: Z45.49 Encounter for adjustment and management of other implanted nervous system device (principal); Z79.891 Long term (current) use of opiate analgesic; M96.1 Postlaminectomy syndrome, not elsewhere classified
CPT/HCPCS: 62370

== ENCOUNTER → 2018-07-12 | Day surgery (SDC) | payer MEDICARE ==
[2018-07-12 13:05] VITALS: BP 160/83; PULSE 78; RESP 16
--- NOTE | 2018-07-12 14:41 | P.PCN ---
Date of Procedure: 07/12/18 Procedure(s) Performed: PROCEDURE: Intrathecal pain pump analysis, programming and reprogramming, and intrathecal pain pump refill. PREOPERATIVE DIAGNOSES: 1. near empty intrathecal pain pump time for refill. 2. opioid tolerance 3. chronic pain syndrome POSTOPERATIVE DIAGNOSES: 1. near empty intrathecal pain pump time for refill. 2. opioid tolerance 3. chronic pain syndrome ANESTHESIA: None. CONDITION: Stable. INDICATION: This is a 62-year-old patient with a long history of chronic pain secondary to postlaminectomy syndrome Patient previously had an intrathecal pump placed, which is now close to empty, and patient presents for refill today. Patient denies any side effects of the intrathecal medication, including new weakness, new numbness, excessive drowsiness or sleepiness, nausea/vomiting , weight gain, or night sweats. Patient also denies suicidal ideation, and reports that the current pain medication is helping control the chronic pain and improve the patient's activities of daily living. She is complaining of increased pain in the upper back area, so she is complaining of the pummp pocket, the location in the right buttock bothering her . DESCRIPTION: The intrathecal pain pump was analyzed and showed that the patient currently has reservoir volume of [ 8.6] mL. The patient is receiving intrathecal fentanyl PF at concentration [200] mcg/ ml , and bupivacaine PF at concentration [4] mg/ml. Patient receiving daily dose of fentanyl [100] mg/day and bupivacaine [ 2 ] mg/day. The location of the pump (right buttock) was prepped with chlorhexidine x3.Then , the 22-gauge needle from the [employer] kit was advanced through the pump port.Total of [10] ml was removed from the pump, and it was refilled with the new medication total volume of [40] ml of a solution containing fentanyl at concentration [300] mcg /ml and bupivacaine at concentration [6] mg/ml. The patient will be increased 15% with daily dose fentanyl [115 ] mcg/day and bupivacaine [2.3] mg/day. Patient given prescription refill for oxycodone 30 mg every 6 hours dispensed 120 with 2 refills Next visit. We'll change the medication in the intrathecal pump to morphine sulfate, and bupivacaine, 4 for this combination was spread cephalad, and patient will get good coverage for the upper back area because she is complaining of increased thoracic pain, currently the pain in the thoracic area is not covered with a fentanyl, I explained to her that , currently there is nothing can be done to change the location of the pump in the right buttock area, the best option is to wait, and today it is the time , for the pump revision, at that time we can change the location of the pump from the buttock area to the abdomen Patient also counseled about risks of respiratory depression and utilizing both high-dose opioids and benzodiazepines and she verbalized understanding.
== END ==
LOC: PNWHC3 12:08
PROVIDERS: ATTEND Specialist
DX: G89.4 Chronic pain syndrome (principal); Z45.1 Encounter for adjustment and management of infusion pump; Z79.891 Long term (current) use of opiate analgesic
CPT/HCPCS: 62370

== ENCOUNTER → 2018-07-20 | Outpatient (CLI) | payer MEDICARE ==
--- NOTE | 2018-07-20 17:09 | US ---
EXAMINATION TYPE: US venous doppler duplex LE RT DATE OF EXAM: 07/20/2018 4:59 PM COMPARISON: NONE CLINICAL HISTORY: M79.661 Pain In Limb, R22.1 Swelling. No redness. Pt states knee and calf swelling today but not today. No hx of blood clots. On aspirin. SIDE PERFORMED: Right TECHNIQUE: The lower extremity deep venous system is examined utilizing real time linear array sonog sue with graded compression, doppler sonography and color-flow sonography. VESSELS IMAGED: External Iliac Vein (EIV) Common Femoral Vein Deep Femoral Vein Greater Saphenous Vein * Femoral Vein Popliteal Vein Small Saphenous Vein * Proximal Calf Veins (* superficial vessels) FINDINGS: Grayscale, color doppler, spectral doppler imaging performed of the deep veins of the lower extremities. There is normal flow, compressibility, vascular waveforms. IMPRESSION: NEGATIVE FOR DVT, RIGHT LOWER EXTREMITY.
== END | disposition home or self-care (01) ==
LOC: RADUSMAIN 16:36
PROVIDERS: ATTEND Internal Medicine
DX: M79.661 Pain in right lower leg (principal); R22.41 Localized swelling, mass and lump, right lower limb

== ENCOUNTER → 2018-12-21 | Day surgery (SDC) | payer MEDICARE ==
[2018-12-21 13:41] VITALS: BP 166/91; PULSE 75; RESP 16; TEMP 98.5
--- NOTE | 2018-12-22 18:18 | P.PCN ---
Date of Procedure: 12/21/18 Procedure(s) Performed: PROCEDURE: Intrathecal pain pump analysis, programming and reprogramming, and intrathecal pain pump refill. PREOPERATIVE DIAGNOSES: 1. near empty intrathecal pain pump time for refill. 2. opioid tolerance 3. chronic pain syndrome POSTOPERATIVE DIAGNOSES: 1. near empty intrathecal pain pump time for refill. 2. opioid tolerance 3. chronic pain syndrome ANESTHESIA: None. CONDITION: Stable. INDICATION: This is a 63-year-old patient with a long history of chronic pain secondary to postlaminectomy syndrome Patient previously had an intrathecal pump placed, which is now time to refill the pump. Patient denies any side effects of the intrathecal medication, including new weakness, new numbness, excessive drowsiness or sleepiness, nausea/vomiting, weight gain, or night sweats. Patient also denies suicidal ideation, and reports that the current pain medication is helping control the chronic pain and improve the patient's activities of daily living. DESCRIPTION: The intrathecal pain pump was analyzed and showed that the patient currently has reservoir volume of [29.8] mL. The patient is receiving intrathecal Dilaudid at concentration [6 ] mg/ ml, and bupivacaine PF at concentration [3] mg/ml. Patient receiving daily dose of Dilaudid PF [0.7] mg/day and bupivacaine [ 0.35] mg/day. Patient continued to have severe mid, and low back pain and also mid and upper back pain, and the current medication is not helping to control her pain for this reason , I will increase her daily dose of the medication , The location of the pump (right buttock) was prepped with chlorhexidine x3. Then, the 22-gauge needle from the [email or web address] kit was advanced through the pump port. Total of [29.5] ml was removed from the pump, and it was refilled with the new medication total volume of [40] ml of a solution containing Dilaudid at concentration [6] mg /ml and bupivacaine at concentration [3] mg/ml. I increased the daily dose Dilaudid [0.8] mg/day and bupivacaine [0.4] mg/day. Which is equal to 14% increase Also prescription refill for oxycodone 30 mg every 6 hours given dispense 120 with 2 refills and also prescription for Zanaflex 4 mg every 6 hours dispense 120 with primary Neurontin 300 mg every 8 hours dispense 90 with 2 refills Patient is living to [place] and the next few weeks, and she is going to stay over there for a few weeks for this reason she is asking if he can get her early prescription refill , for this reason I give patient early prescription refill, and she will follow up with the pain clinic in 3 months. - PQRS measures = - Patient's medications are documented in the chart. -Tobacco use is negative and counseling.Given. -Patient's has not received pneumococcal vaccine. -Advanced care planning discussed, patient not eligible. -Opiate contract signed. -Pain positive and follow-up visit/procedure is scheduled. -Patient's blood pressure measured [ 166/91 ] , and documented in the record ,and patient will follow up with the primary care. -Patient's weight was measured and body mass index (24 ),within the normal limits and counseling was done. and patient instructed to follow-up with the primary care physician. -Patient was not identified as an unhealthy alcohol user
== END ==
LOC: PNWHC3 12:57
PROVIDERS: ATTEND Specialist
DX: Z45.1 Encounter for adjustment and management of infusion pump (principal); M96.1 Postlaminectomy syndrome, not elsewhere classified; Z79.891 Long term (current) use of opiate analgesic
CPT/HCPCS: 62370; 99211

== ENCOUNTER → 2019-03-15 | Day surgery (SDC) | payer MEDICARE ==
[2019-03-15 12:14] VITALS: BP 148/77; PULSE 93; RESP 18
--- NOTE | 2019-03-15 13:00 | P.PCN ---
Date of Procedure: 03/15/19 Preoperative Diagnosis: Failed back surgery syndrome Near empty intrathecal opioid pump Postoperative Diagnosis: Failed back surgery syndrome Procedure(s) Performed: Intrathecal opioid pump refill Anesthesia: none Surgeon: Lola Shelton Pathology: none sent Condition: stable Disposition: no change Description of Procedure: This is a 63-year-old lady with history of multiple back surgeries with cervical and lumbar fusions. The patient's pain has been tolerable with her intrathecal hydromorphone infusion with bupivacaine. The patient also takes oral oxycodone and Zanaflex plus Neurontin. The patient's lower back pain has been doing well however she is having increasing upper back pain. The patient states that she has history of scoliosis. She denies any new paresthesia or weakness in the lower extremities and no change from baseline. By physical exam she is alert oriented 3 in no apparent distress. She has pain in her left eye due to corneal abrasion. Neuro exam of the lower extremities showed decreased right knee flexion and extension to 3 out of 5 and ankle flexion extension to 4 out of 5 normal muscle strength in the left side is decreased to 4 out of 5 bilaterally for knee flexion and extension and ankle flexion and extension. She has absent right knee reflex and decreased left knee reflex and absent ankle reflex bilaterally. She has significant tenderness in the thoracic paravertebral musculature and also in the cervical paravertebral musculature. Today I will renew the patient's oral opioids I'll order a thoracic spine two- view x-ray I will also do intrathecal Dilaudid pump refill. The patient leaned over the examination table skin over the pump in the right buttock area was prepped with Chlor[employer]Prep and draped in a sterile manner. I then used the [employer] needle to go through the central pump access port, and obtained a 29 MLS of the residual fluid. Then I injected 40 MLS of the new solution through a filter this new solution containing his Dilaudid 6 been transferred mL and bupivacaine 3 mg per mL. I then reprogrammed the pump to increase the rate of Dilaudid infusion to 0.9 mg per day, with no bolus. The patient tolerated procedure well. She will be seen for follow-up in 3 months from now.
== END ==
LOC: PNWHC3 11:55
PROVIDERS: ATTEND Anesthesiology
DX: M96.1 Postlaminectomy syndrome, not elsewhere classified (principal); Z98.1 Arthrodesis status
CPT/HCPCS: 62370

== ENCOUNTER → 2019-05-31 | Day surgery (SDC) | payer MEDICARE ==
[2019-05-31 12:57] VITALS: BP 151/72; PULSE 85; RESP 16
--- NOTE | 2019-06-01 13:31 | P.PCN ---
Date of Procedure: 05/31/19 Procedure(s) Performed: Preoperative Diagnosis: Failed back surgery syndrome Presence of intrathecal opioid pump Postoperative Diagnosis: Failed back surgery syndrome Procedure(s) Performed: Intrathecal opioid pump refill Anesthesia: none Surgeon: Mani Montelongo M.D. Pathology: none sent Condition: stable Disposition: no change Description of Procedure: This is a 63-year-old lady with history of multiple back surgeries with cervical and lumbar fusions. The patient's pain has been tolerable with her intrathecal hydromorphone infusion with bupivacaine. The patient also takes oral oxycodone and Zanaflex plus Neurontin. The patient's lower back pain has been doing well however she is having increasing upper back pain, which has been gradually improving with prior increases to intrathecal opioid pump. She denies any new paresthesia or weakness in the lower extremities and no change from baseline. At her last visit, we had ordered a thoracic spine x-ray, however the patient lost this prescription. Today I will renew the patient's oral opioids, reorder a thoracic spine two-view x-ray and perform intrathecal Dilaudid pump refill. The patient leaned over the examination table skin over the pump in the right buttock area was prepped with [employer] and draped in a sterile manner. I then used the [employer] needle to go through the central pump access port, and obtained a 28 MLS of the residual fluid. Then I injected 40 MLS of the new solution through a filter. This new solution containing Dilaudid 6 milligrams per mL and bupivacaine 3 mg per mL. I then reprogrammed the pump to increase the rate of Dilaudid infusion to 1 mg per day, and gave a 0.1 mg bolus over 15 minutes. The patient tolerated procedure well. She will be seen for follow-up in 3 months from now. Of note, her elective pump change date will be prior to her 3 month follow-up. I will discuss this with Dr. Santos and communicate with the patient regarding pump exchange.
== END | disposition home or self-care (01) ==
LOC: PNWHC3 12:06
PROVIDERS: ATTEND Anesthesiology
DX: Z45.1 Encounter for adjustment and management of infusion pump (principal); M96.1 Postlaminectomy syndrome, not elsewhere classified
CPT/HCPCS: 62370

== ENCOUNTER → 2019-07-17 | Outpatient (CLI) | payer MEDICARE ==
--- NOTE | 2019-07-17 12:16 | XR ---
EXAMINATION TYPE: XR thoracic spine 2V DATE OF EXAM: 07/17/2019 COMPARISON: NONE HISTORY: Pain Alignment is anatomic. There is no compression deformities. Vertebral body height and disc interspa tiffanie are maintained. Hypertrophic and degenerative change of the spine. Postsurgical change involving the lumbar spine. Appears to be a spinal catheter within the spinal column of the thoracic spine ext ending to the mid thoracic level. IMPRESSION: 1. Multilevel hypertrophic and degenerative disc disease.
== END | disposition home or self-care (01) ==
LOC: RADXRMAIN 11:47
PROVIDERS: ATTEND Anesthesiology
DX: M51.34 Other intervertebral disc degeneration, thoracic region (principal)
CPT/HCPCS: 72070

== ENCOUNTER 2019-08-29 10:47 | Day surgery (SDC) | payer MEDICARE ==
[2019-08-27 14:51] VITALS: BMI 24.3
[~2019-08-29 10:47] MED LIST: LACTATED RINGERS 1,000 ML IV SCH; LIDOCAINE 1% 20 ML VIAL (10MG/ML) FOR IV START INTRADERMA PRN; ONDANSETRON 4 MG/2 ML VIAL IVP ONE
[2019-08-29] MEDS ORDERED: diphenhydrAMINE 50 MG/ML 1 ML VIAL ONE (12:49)
[2019-08-29] MEDS ORDERED: KETAMINE 10 MG/ML 20 ML VIAL ONE (12:49)
[2019-08-29] MEDS ORDERED: MIDAZOLAM 2 MG/2 ML VIAL ONE (12:49)
[2019-08-29] MEDS ORDERED: fentaNYL (PF) 50 MCG/ML 2 ML AMP ONE (12:49)
[2019-08-29] MEDS ORDERED: PROPOFOL 10 MG/ML 20 ML VIAL IV ONE (12:49)
[2019-08-29] MEDS ORDERED: HYDROmorphone (PF) 1 MG/ML ONE (12:49)
--- NOTE | 2019-08-29 12:56 | P.GSHP ---
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 hepatitis B at age 15, DDD, hx cervical cancer,several mini strokes. Left rotator cuff injury mid October of 2017. Left wrist fx,bowel tumor-benign History of Any Multi-Drug Resistant Organisms: None Reported Past Surgical History: Appendectomy, Back Surgery, Bowel Resection, Cholec ystectomy, Hysterectomy Additional Past Surgical History / Comment(s): pain pump, mutiple female surgeries,cervical and lumbar fusions,ileac bone bone graft sites, LEFT CLAVICLE MAY 14 2017. Past Anesthesia/Blood Transfusion Reactions: No Reported Reaction Additional Past Anesthesia/Blood Transfusion Reaction / Comment(s): no problems with prior of blood transfusion Smoking Status: Former smoker - Past Family History Mother Family Medical History: Cancer Additional Family Medical History / Comment(s): breast Sister(s) Family Medical History: Cancer, Deep Vein Thrombosis (DVT), Pulmonary Embolus Additional Family Medical History / Comment(s): ovarian ca, skin ca Father Family Medical History: Cancer Additional Family Medical History / Comment(s): skin Medications and Allergies Home Medications Medication Instructions Recorded Confirmed Type Intrathecal Opoid Pain Pump 1 dose INTRATHECA CONTINUOUS 04/17/14 08/29/19 History Lisinopril-Hctz 10-12.5 mg 1 tab PO QAM 12/01/16 08/29/19 History [Zestoretic 10-12.5] Gabapentin [Neurontin] 300 mg PO TID #90 cap 02/15/18 08/29/19 Rx tiZANidine HCL [Zanaflex] 4 mg PO Q6HR PRN #120 tab 02/15/18 08/29/19 Rx Levothyroxine Sodium [Synthroid] 25 mcg PO QAM 03/22/18 08/29/19 History oxyCODONE HCL [oxyCODONE HCL (IR)] 30 mg PO Q6HR PRN #120 tab 07/12/18 08/29/19 Rx amLODIPine [Norvasc] 2.5 mg PO QAM 05/31/19 08/29/19 History Aspirin 81 mg PO DAILY 08/27/19 08/29/19 History Meloxicam [Mobic] 15 mg PO DAILY PRN 08/27/19 08/29/19 History Rosuvastatin Calcium [Crestor] 5 mg PO DAILY 08/27/19 08/29/19 History Allergies Allergy/AdvReac Type Severity Reaction Status Date / Time tetracycline [Tetracycline] AdvReac Nausea & Verified 08/29/19 11:09 Vomiting Surgical - Exam Vital Signs Temp Pulse Resp BP Pulse Ox 98.5 F 83 19 127/61 98 08/29/19 11:11 08/29/19 11:11 08/29/19 11:11 08/29/19 11:11 08/29/19 11:11 Physical Examinations : -Constitutiona : Cooperative , not in acute distress . -HEENT : nech : supple , no Lymphadenopathy , normal thyroid size . eyes : no ptosis , no icterus, no photophobia . ENT : normal of hearing , normal oropharynx , no Thrush . - Respiratory : Chest clear to auscultations Bilaterally , no wheezing , no Rhonchi . - Cardiovascula : regular rate and rhythem , S1 , S2 , no S3 , no S4.. - neurologic : Cranial nerve II to XII intact , no focal neurological deffecit . -psychatric : alert , oriented X 3 , appropriate affect , intact judgment and insight . -Lymphatic : no Lymphadenopathy . - musculoskeltal : Cervical Spine motor stregnth in the deltoid and biceps, normal right side , normal Left side motor stregnth biceps and the wrist extensors normal right side ,normal left side . motor stregnth in the triceps muscle . normal Right side , normal Left side Lumber spine moter stegnth lower extremities ,thigh and legs 5/5 Right side , 5/5 Left side Assessment and Plan Plan: Assessment and plan= 64 years old female with a history of chronic severe low back pain she had intrathecal pain pump implanted several years ago and she had end of life of intrathecal pain pump and she is here today to have intrathecal pain pump replaced. Time with Patient: Less than 30
[2019-08-29] MEDS ORDERED: BUPIVACAINE (PF) 0.5% 30 ML VIAL SQ ONE ×3 (13:17)
[2019-08-29] MEDS ORDERED: LIDOCAINE 2%-EPI 1:100,000 20 ML VIAL SQ ONE ×3 (13:17)
[2019-08-29] MEDS ORDERED: ceFAZolin 1,000 MG in SODIUM CHLORIDE 0.9% 1,000 ML IRRIGATION ONE (13:27)
[2019-08-29] MEDS ORDERED: LACTATED RINGERS 1,000 ML IV ONE (14:07)
[2019-08-29] MEDS ORDERED: KETOROLAC 30 MG/ML 1 ML VIAL IVP ONE (15:50)
[2019-08-29 15:54] VITALS: RESP 16; TEMP 97
--- NOTE | 2019-08-29 16:03 | P.PCN ---
Date of Procedure: 08/29/19 Procedure(s) Performed: Procedure= 1-replacement of permanent intrathecal infusion pump. 2-replacement of tunneling intrathecal catheter. Under fluoroscopy guidance 3-electronic analysis of intrathecal pain pump. And pump refill Preoperative diagnosis=1-postlaminectomy pain syndrome lumbar area. 2-opioid tolerance. 3-end of life of intrathecal pain pump ,time for replacement Postoperative diagnosis= 1-migration of intrathecal catheter, need for replacement of intrathecal catheter 2-end of life of intrathecal pain pump. 3-postlaminectomy pain syndrome lumbar area. 4-oh. Tolerance. Conditions= stable. Complications= none. Anesthesia= monitored anesthesia care. Estimated blood loss= 25 ML. Estimated blood loss= minimal. Anesthesia= general endotracheal intubation. Indication for the procedure= patient with a history of chronic pain and history of postlaminectomy pain syndrome , patient had intrathecal pain pump implanted several years ago on cheesy today to have intrathecal pain pump replacement. Procedure risk and benefits discussed with the patient she agreed with proceedi ng Description of the procedure= patient was identified in the preop holding area risks and benefits and alternatives of the procedure discussed with the patient and her and they agreed with proceeding, all the questions answered. Patient placed in prone position after induction of anesthesia, by anesthesia department, the patient was given 2 g of prophylactic antibiotics consisting of Ancef 2 g, the back and the buttock area prepped with the DuraPrep 3, then draped in the standard fashion, then under fluoroscopy guidance local infiltration of the skin and subcu interstitial with the local infiltration with mixture of lidocaine 2% with epi, then the right buttock area at the location of the pump we did the dissection and an IV was injected remove the old pump and when I tried to aspirate fluid from the catheter and there was no cerebrospinal fluid coming from the catheter, then I found that the catheter connector was not connected to the distal end of the intrathecal pain pump, was loose, and will attempt done to localize the distal end of the catheter I was not able to find it, for this reason , I felt that I have to replace the catheter, otherwise patient will continue to leak cerebrospinal fluid, and she will have continuous headache.if I don't remove the the old CATHETER and I have to replace it, then at L2-3 interlaminar space,, then a 17-gauge Tuohy needle advanced slowly at L2-3 and there was positive on the cerebrospinal fluid, then the entire thecal catheter advanced through the needle up to T9 level,, under live fluoroscopy, then after that the pain in the skin incision around the needle and then dissection to the fascia under the skin, hemostasis obtained using cautery, then first suture placed around the needle , then after that the stylet removed from the catheter, and anchored placed around the catheter, to prevent any movement of the catheter, then another incision made in the left buttock area to create a pocket for the intrathecal pain pump, and an adequate hemostasis obtained, using the cautery, then after that I created, between the catheter , and the Right buttock area, using a [employer] tunneling device, then after that the catheter passed from the L2-3 interlaminar space towards the right buttock area, and then after adequate flow of the cerebrospinal fluid coming through the catheter and then after that the catheter connected to the pump, then after that the pump pocket closed using 2-0 Vicryl for subcu 3-0 Vicryl and then, the midline incision was closed with 2-0 Vicryl and then pj, all this done after adequate hemostasis was obtained, a she'll was given priming bolus , and she was given initial bolus of 0.23 mg of Dilaudid and she will receive a daily dose of Dilaudid 0.23 mg per day, patient seen in the recovery room and evaluated and she was in stable condition and for the awake and she was discharged home in stable condition and she will follow up in the pain clinic in a few days. note = I was able to find the old catheter after I made the incision in the low lumbar area at L2-3 and after dissection was made and the subcutaneous tissue on the old catheter and it was removed.
[2019-08-29] MEDS: HYDROmorphone 0.5 MG/0.5 ML SYRINGE IVP PRN ×2 (16:20→16:37)
[2019-08-29 17:02] VITALS: BP 132/62; PULSE 75
--- NOTE | 2019-08-29 17:11 | FL ---
Fluoroscopy HISTORY: Pain 1 minute 10 seconds fluoroscopy time supplied to the referring clinician. 3 intraoperative C-arm janeen ges document the procedure. See dictated report from anesthesia.
== END 2019-08-29 17:24 | disposition home or self-care (01) ==
LOC: OR 10:47
PROVIDERS: ATTEND Specialist
DX: M96.1 Postlaminectomy syndrome, not elsewhere classified (principal); Z45.1 Encounter for adjustment and management of infusion pump; Z79.891 Long term (current) use of opiate analgesic; I10 Essential (primary) hypertension; M19.90 Unspecified osteoarthritis, unspecified site; Z86.73 Personal history of transient ischemic attack (TIA), and cerebral infarction without residual deficits; K76.9 Liver disease, unspecified; Z86.19 Personal history of other infectious and parasitic diseases; Z85.41 Personal history of malignant neoplasm of cervix uteri; Z90.710 Acquired absence of both cervix and uterus; Z90.49 Acquired absence of other specified parts of digestive tract; Z87.891 Personal history of nicotine dependence; Z80.3 Family history of malignant neoplasm of breast; Z80.8 Family history of malignant neoplasm of other organs or systems; Z80.41 Family history of malignant neoplasm of ovary; Z79.82 Long term (current) use of aspirin; Z79.890 Hormone replacement therapy; Z79.899 Other long term (current) drug therapy; Z88.1 Allergy status to other antibiotic agents
CPT/HCPCS: 62362; C1787; C1778; C1755; J2250; J1200; J0690 ×2; J2405; J3010; J1885; J1170 ×2; J2704

== ENCOUNTER → 2019-09-05 | Outpatient (CLI) | payer MEDICARE ==
[2019-09-05 13:52] VITALS: BP 123/72; PULSE 97; RESP 18
--- NOTE | 2019-09-05 14:58 | P.PAINPG ---
Subjective Progress Note Date: 09/05/19 This is a follow-up visit for this 64 years old female with a chronic history of severe low back pain, she is diagnosed with failed back surgery syndrome lumbar area and opioid tolerance, she had intrathecal pain pump replaced last week, and she is here today if to check on her incision and to adjust her intrathecal pain pump therapy, last week when we replace the pump and found on that patient had intrathecal pain pump disconnected from the catheter and for this reason I started the patient on the lowest dose possible of intrathecal pain medication, patient was started on intrathecal Dilaudid dose 0.28 mg and bupivacaine 0.14 mg per day, and the medication concentration was Dilaudid 6 mg per mL and bupivacaine 3 mg per mL, the patient came today to the pain clinic but she was complaining of increased pain in the low back area Objective - Vital Signs Vital signs: Vital Signs Temp Pulse 97 09/05/19 13:45 Resp 18 09/05/19 13:45 BP 123/72 09/05/19 13:45 Pulse Ox 97 09/05/19 13:45 - Exam Physical Examinations : -Constitutiona : Cooperative , not in acute distress . -HEENT : nech : supple , no Lymphadenopathy , normal thyroid size . eyes : no ptosis , no icterus, no photophobia . - neurologic : Cranial nerve II to XII intact , no focal neurological deffecit . -psychatric : alert , oriented X 3 , appropriate affect , intact judgment and insight . -Lymphatic : no Lymphadenopathy . - musculoskeltal : Lumber spine moter stegnth lower extremities ,thigh and legs 5/5 Right side , 5/5 Left side The right that the location of the pump incision healed appropriately and the thoracic incision healed appropriately there is no sign of infection No erythema and no discharge. Assessment and Plan Plan: Assessment and plan=1 failed back surgery syndrome, opiate tolerance, intrathecal opioid therapy status post intrathecal pain pump and catheter placement pateints to complaining of severe pain we will increase the intrathecal pain medication to Dilaudid 0.376 mg per day and bupivacaine 0.18 mg per day which is equal to 30% increase, and this is increased because patient complaining of severe low back pain and also she is being started on extremely low dose, patient was given a bolus of Dilaudid 0.2 mg, and patient will follow up in the pain clinic in 1 week to recheck on her incision and also to adjust her intrathecal pain medication, she was given a prescription refill for oxycodone 30 mg every 6 hours when necessary for pain and Neurontin 300 mg 3 times a day dispense 90 with 2 refills, Zanaflex 4 mg every 8 hours dispense 90 with 2 refills Intrathecal pain pump and the rest show patient currently on Dilaudid concentration 6 mg per mL and picking concentrations 3 mg per mL and patient is sitting a daily dose of Dilaudid 0.286 mg per day and bupivacaine 0.14 mg per day and the infusion increased to Dilaudid 0.37 mg per day and bupivacaine 0.18 mg per day and patient getting a bolus of intrathecal pain medication Dilaudid 0.2 mg over 6 minutes Time with Patient: Less than 30 PQRS Measure Charge Sheet Measure #130: Documentation of Current Meds in Medical Chart: Patient's medications documented in chart Measure #226: Tobacco Use: Screen & Cessation Intervention: Pt not a tobacco user Measure #111: Pneumonia Vaccination: Pneumococcal vaccine NOT administered or previously given Measure #47: Advance Care Plan: Advance care planning discussed & documented, pt chose/unable to give Measure #412: Opioid Treatment Agreement: Documented signed opioid trtmnt agreemnt min once during opioid trtmnt Measure #408: Opioid Therapy Follow-up Evaluation: Patient had f/u eval minimum every 3 months during opioid therapy Measure #317: Preventitive Care & Scrn High Bld Press & F/U: Normal blood pressure, f/u not required Measure #128: Body Mass Index (BMI) Screening & Follow-up: BMI documented ABOVE normal parameters - f/u documented Measure #131: Pain Assessment & Follow-up: Pain positive & plan documented, Follow-up scheduled Measure #431: Unhealthy Alcohol Use Preventative Care & Scrn: Patient not identified as an unhealthy alcohol user PQRS Narrative: Smoking Status Former smoker Narcotic Agreement Date Signed 03/15/19 Blood Pressure 123/72 Pain Intensity [Back] 10 Scale Used Numeric (1 - 10) Hx Alcohol Use (MH) Yes: rare Home Medications: Ambulatory Orders Intrathecal Opoid Pain Pump 1 dose INTRATHECA CONTINUOUS 04/17/14 Lisinopril-Hctz 10-12.5 mg [Zestoretic 10-12.5] 1 tab PO QAM 12/01/16 Gabapentin [Neurontin] 300 mg PO TID #90 cap 02/15/18 tiZANidine HCL [Zanaflex] 4 mg PO Q6HR PRN #120 tab 02/15/18 Levothyroxine Sodium [Synthroid] 25 mcg PO QAM 03/22/18 oxyCODONE HCL [oxyCODONE HCL (IR)] 30 mg PO Q6HR PRN #120 tab 07/12/18 amLODIPine [Norvasc] 2.5 mg PO QAM 05/31/19 Aspirin 81 mg PO DAILY 08/27/19 Meloxicam [Mobic] 15 mg PO DAILY PRN 08/27/19 Rosuvastatin Calcium [Crestor] 5 mg PO HS 08/27/19 Levofloxacin [Levaquin] 750 mg PO DAILY 08/31/19 Controlled Substance Measures - Controlled Substance Measures Is patient prescribed a controlled substance at discharge?: Yes When asked, does pt state using other controlled substances?: No If prescribed controlled substance>3 days was MAPS reviewed?: Yes If Rx opioid, was Start Talking consent form obtained?: Yes If opioid is for acute pain is fill amount 7 days or less?: No Was information provided regarding opioid addiction?: Yes
== END | disposition home or self-care (01) ==
LOC: PNWHC3 13:31
PROVIDERS: ATTEND Specialist
DX: M96.1 Postlaminectomy syndrome, not elsewhere classified (principal); Z97.8 Presence of other specified devices; Z87.891 Personal history of nicotine dependence; Z79.891 Long term (current) use of opiate analgesic; Z79.82 Long term (current) use of aspirin; Z79.1 Long term (current) use of non-steroidal anti-inflammatories (NSAID); Z79.2 Long term (current) use of antibiotics; Z79.890 Hormone replacement therapy; Z79.899 Other long term (current) drug therapy
CPT/HCPCS: 62368; G0463; 99212

== ENCOUNTER → 2019-09-17 | Outpatient (CLI) | payer MEDICARE ==
[2019-09-17 12:21] VITALS: BP 157/73; PULSE 91; RESP 15
--- NOTE | 2019-09-18 09:30 | P.PAINPG ---
Subjective Progress Note Date: 09/17/19 This is a follow-up visit for this 64 years old female with a chronic history of severe low back pain, she is diagnosed with failed back surgery syndrome lumbar area and opioid tolerance, she had intrathecal pain pump replaced a couple of weeks ago, when we replace the pump and found on that patient had intrathecal pain pump disconnected from the catheter and for this reason the patient was started on the lowest dose possible of intrathecal pain medication, when she was seen in clinic for follow-up on 09/05/2019, dose was increased to Dilaudid 0.376 mg per day and bupivacaine 0.18 mg per day which is equal to 30% increase and the medication concentration was Dilaudid 6 mg per mL and bupivacaine 3 mg per mL, the patient returns today for follow-up and reports that she still has low back pain radiating to bilateral lower extremities. Her incisions have healed well. She also would like us to address her mid thoracic pain at some point. In the past, we had discussed thoracic medial branch blocks. Unfortunately, at this time the patient cannot afford further procedures, however she will let us know when it is feasible for her to have this addressed. She rates her pain as 8 out of 10 today. Review of systems is negative for chest pain, shortness of breath, new onset weakness, numbness/tingling, abdominal pain, malaise, fever, night sweats, chills, homicidal or suicidal ideation, or bowel or bladder incontinence. Objective Physical exam: Vitals: Reviewed in EMR GENERAL: Well appearing, in no acute distress PSYCH: Mood and affect is appropriate. Awake, alert, and oriented SKIN: Skin color, texture, turgor normal, no rashes or lesions HEENT: Normocephalic, atraumatic. EOM intact CV: No pedal edema RESP: Respirations are unlabored, no audible wheezing GI: Abdomen non-distended MUSCULOSKELETAL: Bilateral lower extremity strength is normal and symmetric. No atrophy or tone abnormalities are noted. Lumbar spine: Both incisions are well-healed, dry. Both have well healing scabs present over them. Nontender, no erythema Thoracic spine: Tenderness to palpation of mid to lower thoracic spine and paraspinal musculature. Extremities: Peripheral joint ROM is full and pain free without obvious instability or laxity in all four extremities. No edema or skin discolorations noted. Gait: Gait is slow, antalgic EUR: Bilateral lower extremity coordination and muscle stretch reflexes are physiologic and symmetric. Negative clonus bilaterally. No loss of sensation is noted. Assessment and Plan Plan: Assessment and plan=1 failed back surgery syndrome, opiate tolerance, intrathecal opioid therapy status post intrathecal pain pump and catheter replacement She continues to complain of severe pain we will increase the intrathecal pain medication to Dilaudid 0.45mg per day which is equal to 20% increase, patient was given a bolus of Dilaudid 0.1 mg, and patient will follow up in the pain clinic in 8 weeks for medication management In the future, we will plan on addressing her thoracic back pain with thoracic medial branch blocks Time with Patient: Less than 30 PQRS Measure Charge Sheet Measure #130: Documentation of Current Meds in Medical Chart: Patient's medications documented in chart Measure #226: Tobacco Use: Screen & Cessation Intervention: Pt not a tobacco user Measure #111: Pneumonia Vaccination: Pneumococcal vaccine administered or previously given Measure #47: Advance Care Plan: Advance care planning discussed & documented, pt chose/unable to give Measure #412: Opioid Treatment Agreement: Documented signed opioid trtmnt agreemnt min once during opioid trtmnt Measure #408: Opioid Therapy Follow-up Evaluation: Patient had f/u eval minimum every 3 months during opioid therapy Measure #317: Preventitive Care & Scrn High Bld Press & F/U: high blood p ressure, f/with PCP Measure #128: Body Mass Index (BMI) Screening & Follow-up: BMI documented ABOVE normal parameters - f/u documented Measure #131: Pain Assessment & Follow-up: Pain positive & plan documented, Follow-up scheduled Measure #431: Unhealthy Alcohol Use Preventative Care & Scrn: Patient not identified as an unhealthy alcohol user PQRS Measure Charge Sheet PQRS Narrative: Smoking Status Former smoker Narcotic Agreement Date Signed 03/15/19 Pain Intensity [Back] 10 Scale Used Numeric (1 - 10) Hx Alcohol Use (MH) Yes: rare Home Medications: Ambulatory Orders Intrathecal Opoid Pain Pump 1 dose INTRATHECA CONTINUOUS 04/17/14 Lisinopril-Hctz 10-12.5 mg [Zestoretic 10-12.5] 1 tab PO QAM 12/01/16 Gabapentin [Neurontin] 300 mg PO TID #90 cap 02/15/18 tiZANidine HCL [Zanaflex] 4 mg PO Q6HR PRN #120 tab 02/15/18 Levothyroxine Sodium [Synthroid] 25 mcg PO QAM 03/22/18 oxyCODONE HCL [oxyCODONE HCL (IR)] 30 mg PO Q6HR PRN #120 tab 07/12/18 amLODIPine [Norvasc] 2.5 mg PO QAM 05/31/19 Aspirin 81 mg PO DAILY 08/27/19 Meloxicam [Mobic] 15 mg PO DAILY PRN 08/27/19 Rosuvastatin Calcium [Crestor] 5 mg PO HS 08/27/19 Controlled Substance Measures - Controlled Substance Measures Is patient prescribed a controlled substance at discharge?: No
== END | disposition home or self-care (01) ==
LOC: PNWHC3 11:47
PROVIDERS: ATTEND Anesthesiology
DX: M96.1 Postlaminectomy syndrome, not elsewhere classified (principal); Z97.8 Presence of other specified devices; Z87.891 Personal history of nicotine dependence; Z79.891 Long term (current) use of opiate analgesic; Z79.890 Hormone replacement therapy; Z79.82 Long term (current) use of aspirin; Z79.1 Long term (current) use of non-steroidal anti-inflammatories (NSAID); Z79.899 Other long term (current) drug therapy
CPT/HCPCS: 99211

== ENCOUNTER → 2019-10-24 | Day surgery (SDC) | payer MEDICARE ==
[2019-10-24 13:08] VITALS: BP 144/80; PULSE 107; RESP 18
--- NOTE | 2019-10-24 14:07 | P.PCN ---
Date of Procedure: 10/24/19 Procedure(s) Performed: OPERATION: Intrathecal pain pump analysis, programming and reprogramming, and intrathecal pain pump refill. PREOPERATIVE DIAGNOSES: 1. intrathecal pain pump time for refill. 2. 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 ANESTHESIA: None. CONDITION: Stable. Description of the procedure; Intrathecal pain pump analysed ,it showed patient currently had reservoir volume[ 32.7 ] mL. The patient is receiving medication Dilaudid 6 mg/ ml, and bupivacaine concentration 3 mg/ml. Patient receiving daily dose of 0.45 mg/day and bupivacaine 0.22 mg/day. Pain is well controlled , patient using medication for breakthrough pain orally . The location of the pump ( Right Buttuck ) Prepped with chlorhexidine x3 , then using 22-gauge needle Zhui Xin kit advanced through the pump port, Total of 32 ml removed from the pump, expected volume 32.7 ml , the pump refilled with the new medication total volume 40 ml . The concentration of Dilaudid [ 6] mg /ml , and the bupivacaine concentration [3 ] mg/ml. The patient will continue to see the daily dose of Dilaudid [0.53 ] mg/day and bupivacaine [0.26 ] mg/day she is equal to 17% increase in her daily dose And this increased because patient continued to complain of severe back pain which is increased with any activity and her pain level is 9/10 patient will follow up with the pain clinic in 3 months. Prescription refill for was given to the patient Zanaflex 4 mg every 6 hours 120 with 2 refills, oxycodone IR 30 mg every 6 hours when necessary dispense 120 with 2 refills Neurontin 300 mg 3 times a day dispense 90 with 2 refills note= patient was started on very low dose of intrathecal Dilaudid because enthralled only replace the intrathecal pain pump I found out that the intrathecal catheter was disconnected from the pump, and I don't know for how long patient been getting the medication outside the intrathecal, and basically the patient was getting the pain medication from the pocket to the subcutaneous tissue, for this reason a chose to start the patient on a very low dose opioid therapy, she'll continue to have severe low back pain and she denies any side effect of the medication - PQRS measures = - Patient's medications are documented in the chart. -Tobacco use is negative. -Patient's has not received pneumococcal vaccine. -Advanced care planning discussed, patient not eligible. -Opiate contract signed. -Pain positive and follow-up visit/procedure is scheduled. -Patient's blood pressure measured [144/80 ] , and documented in the record ,and patient will follow up with the primary care. -Patient's weight was measured and body mass index [ 20 4. ] within the normal limits and counseling was done. and patient instructed to follow-up with the primary care physician. -Patient was not identified as an unhealthy alcohol user
== END ==
LOC: PNWHC3 12:58
PROVIDERS: ATTEND Specialist
DX: Z45.1 Encounter for adjustment and management of infusion pump (principal); M96.1 Postlaminectomy syndrome, not elsewhere classified
CPT/HCPCS: 62370

== ENCOUNTER → 2020-01-16 | Day surgery (SDC) | payer MEDICARE ==
[2020-01-16 13:29] VITALS: BP 161/79; PULSE 97; RESP 18
--- NOTE | 2020-01-16 14:30 | P.PCN ---
Date of Procedure: 01/16/20 Description of Procedure: PROCEDURE: Intrathecal pain pump analysis, programming and reprogramming, and intrathecal pain pump refill. PREOPERATIVE DIAGNOSES: 1. near empty intrathecal pain pump 2. opioid tolerance POSTOPERATIVE DIAGNOSES: 1. near empty intrathecal pain pump 2. 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 CONDITION: Stable. DESCRIPTION OF PROCEDURE: Intrathecal pain pump analysed, it showed patient currently had reservoir volume 32 mL. The patient is receiving hydromorphone 6 mg/ ml, and bupivacaine concentration 3 mg/ml. Patient receiving daily dose of 0.53 mg/day and bupivacaine 0.2650 mg/day. Pain is well controlled , patient using medication for breakthrough pain. The location of the pump ( Right Buttuck ) Prepped with chlorhexidine x3 , then using 22-gauge needle [employer] kit advanced through the pump port, Total of 32 ml removed from the pump, the pump refills with the new medication total volume 40 ml . The concentration 6 mg /ml, and the bupivacaine concentration 3 mg/ml. I will increase the daily dose to 0.6498 of hydromorphone and 0.3249 mg per day of bupivacaine. I have decreased her oral morphine equivalence from oxycodone 30 mg every 6 to oxycodone 20 every 6. I discussed the risks of using these medications in excess and the risks of using them with other sedatives which includes Xanax which is recently prescribed to her. She reports that she's had this because of her financial and her social situation and was recently prescribed. She reports she will not take it anymore if we have concerns about it. I discussed the risks which include respiratory depression and . Patient appears to understand. We discussed that we can continue to decrease the oral medications while increasing the pump medications moving forward. I've asked her to give us a call back in 2 weeks if her pain is not improved and we can likely see her again to just increase the dosage of medications via the pump.
== END ==
LOC: PNWHC3 13:12
PROVIDERS: ATTEND Hospitalist
DX: Z45.1 Encounter for adjustment and management of infusion pump (principal); Z79.891 Long term (current) use of opiate analgesic; Z79.899 Other long term (current) drug therapy; M96.1 Postlaminectomy syndrome, not elsewhere classified
CPT/HCPCS: 62370

== ENCOUNTER → 2020-01-24 | Outpatient (CLI) | payer MEDICARE ==
[2020-01-24 11:52] VITALS: BP 175/89; PULSE 77; RESP 16
--- NOTE | 2020-01-24 19:03 | P.PN ---
Subjective Progress Note Date: 01/24/20 This is 64 years old female with a chronic history of severe low back pain ,she is diagnosed with failed back surgery syndrome ,and opioid tolerance, she is currently on intrathecal pain medication, Dilaudid and bupivacaine, and she is getting oral pain medication oxycodone 20 milligrams every 6 hours(she was getting 30 mg every 6 hours was decreased last week to 20 mg every 6 hours ) patient was seen last week and we increased her intrathecal pain pump 23%, patient continued to have severe low back pain, she is increased with any activity, and she called checking if we can adjust her intrathecal pain medication, today we interrogated the intrathecal pain pump and it showed the patient currently had the total volume 39.1 ml , and patient had intrathecal Dilaudid concentration 6 mg per mL and bupivacaine concentration 3 mg per mL, patient reported that her pain level was between 8-10 over 10 and she is not able to function, for this reason I discussed with the patient the option of increasing her intrathecal dose, patient currently receiving a daily dose of Dilaudid 0.64 mg per day and bupivacaine 0.32 mg per day and I increased the vacation 12% which is equal to Dilaudid 0.72 mg per day and bupivacaine 0.36 mg per day, the patient giving a bolus of Dilaudid 0.25 mg over 10 minutes, patient will continue to use oxycodone 20 mg every 6 hours when necessary and Zanaflex 4 mg every 6 hours Objective - Vital Signs Vital signs: Vital Signs Temp Pulse 77 01/24/20 11:48 Resp 16 01/24/20 11:48 BP 175/89 01/24/20 11:48 Pulse Ox 96 01/24/20 11:48 Intake & Output 01/23/20 01/24/20 01/24/20 18:59 06:59 18:59 Weight 76.657 kg
== END | disposition home or self-care (01) ==
LOC: PNWHC3 11:21
PROVIDERS: ATTEND Specialist
DX: G89.29 Other chronic pain (principal); M96.1 Postlaminectomy syndrome, not elsewhere classified; Z79.891 Long term (current) use of opiate analgesic; Z97.8 Presence of other specified devices; Z79.899 Other long term (current) drug therapy
CPT/HCPCS: 99211

== ENCOUNTER → 2020-04-10 | Day surgery (SDC) | payer MEDICARE ==
--- NOTE | 2020-04-10 08:46 | P.PCN ---
Date of Procedure: 04/10/20 Procedure(s) Performed: PROCEDURE: Intrathecal pain pump analysis, programming and reprogramming, and intrathecal pain pump refill. PREOPERATIVE DIAGNOSES: 1. near empty intrathecal pain pump 2. 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 near empty intrathecal pain pump 2. 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 CONDITION: Stable. DESCRIPTION OF PROCEDURE: Intrathecal pain pump analysed, it showed patient currently had reservoir volume 29.8 mL. The patient is receiving hydromorphone 6 mg/ ml, and bupivacaine concentration 3 mg/ml. Patient receiving daily dose of 0.53 mg/day and bupivacaine 0.2650 mg/day. Pain is well controlled , patient using medication for breakthrough pain- oxycodone 20 mg every 6 hours when necessary. The location of the pump ( Right Buttock ) Prepped with chlorhexidine x3 , then using 22-gauge needle [employer] kit advanced through the pump port, Total of 30 ml removed from the pump, the pump refills with the new medication total volume 40 ml . The concentration 6 mg /ml, and the bupivacaine concentration 3 mg/ml. I patient will stay at the same daily dose of 0.6498 of hydromorphone and 0.3249 mg per day of bupivacaine. Patient recently had multiple fractures of right leg and underwent surgery to right and right ankle. She is currently living at [facility]. The doctor at [facility] has increased her oxycodone to 30 mg every 6 hours- 20 tablets given per maps report. I will continue the medication we prescribe of oxycodone 20 mg 6 hours when necessary for pain-- if patient needs more for breakthrough pain, this can be provided by her physician at [facility]. This was explained to her and she expressed understanding. Patient was given a prescription for oxycodone 20 mg-120 tablets with 2 refills. He is also given prescription for Zanaflex 4 mg every 6 hours and gabapentin 300 mg 3 times a day with 2 refills each.
[2020-04-10 14:37] VITALS: BP 140/70; PULSE 87; RESP 18
== END ==
LOC: PNWHC3 08:07
PROVIDERS: ATTEND Anesthesiology
DX: Z45.1 Encounter for adjustment and management of infusion pump (principal); M96.1 Postlaminectomy syndrome, not elsewhere classified; Z79.891 Long term (current) use of opiate analgesic
CPT/HCPCS: 62370

== ENCOUNTER → 2020-05-02 | Outpatient (CLI) | payer MEDICARE ==
--- NOTE | 2020-05-02 13:31 | XR ---
Right knee, right femur, right ankle HISTORY: Pain 3 views the right knee, frontal and lateral views the right femur on 5 images, 3 views of the right a nkle submitted. Patient shows upper reduction internal fixation changed to a distal femur fracture, there is perioste al new bone formation along the fracture line, comminuted fracture site at the level of the distal ri ght femur metadiaphysis. Fracture fragments are present at this level. Patient is status post right k nee arthroplasty. There is a pump over the right femoral region proximally. The patient's reduction internal fixation changes in the right ankle are noted, there is anatomic ali gnment, operative changes are present in cast. IMPRESSION: Correlate for history of fracture to the distal femur, postop changes are present as desc ribed, there is periosteal reaction present at the level of the distal femoral comminuted fracture.
== END | disposition home or self-care (01) ==
LOC: RADXRMAIN 12:35
PROVIDERS: ATTEND Internal Medicine
DX: S72.401A Unspecified fracture of lower end of right femur, initial encounter for closed fracture (principal); Z96.651 Presence of right artificial knee joint; M25.571 Pain in right ankle and joints of right foot; M79.651 Pain in right thigh

== ENCOUNTER → 2020-06-25 | Day surgery (SDC) | payer MEDICARE ==
[2020-06-25 13:04] VITALS: BP 170/81; PULSE 108; RESP 18; TEMP 99.9
--- NOTE | 2020-06-25 13:36 | P.PCN ---
Date of Procedure: 06/25/20 Procedure(s) Performed: OPERATION: Intrathecal pain pump analysis, programming and reprogramming, and intrathecal pain pump refill. PREOPERATIVE DIAGNOSES: 1. intrathecal pain pump time for refill. 2. 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 ANESTHESIA: None. CONDITION: Stable. Description of the procedure; Intrathecal pain pump analysed ,it showed patient currently had reservoir volume[ 30.8 ] mL. The patient is receiving medication Dilaudid 6 mg/ ml, and bupivacaine concentration 3 mg/ml. Patient receiving daily dose of 0.72 mg/day and bupivacaine 0.36 mg/day. Pain is well controlled , patient using medication for breakthrough pain oxycodone 20 mg every 6 hours when necessary orally . The location of the pump ( Right Buttuck ) Prepped with chlorhexidine x3 , then using 22-gauge needle [employer] kit advanced through the pump port, Total of 32 ml removed from the pump, expected volume 27.5 ml , the pump refilled with the new medication total volume 40 ml . The concentration of Dilaudid [ 6] mg /ml , and the bupivacaine concentration [3 ] mg/ml. Patient complaining of severe pain,for this reason ,I will increase the daily dose of Dilaudid [0.76 ] mg/day and bupivacaine [0.38] mg/day she is equal to 5.1% increase in her daily dose And this increased because patient continued to complain of severe back pain which is increased with any activity and her pain level is 9/10, and also patient had a right femur fracture recently and she was treated at [facility] patient will follow up with the pain clinic in 3 months. Prescription refill for was given to the patient Zanaflex 4 mg every 6 hours 120 with 2 refills, oxycodone IR 20 mg every 6 hours when necessary dispense 120 with 2 refills Neurontin 300 mg 3 times a day dispense 90 with 2 refills MAPS reviewed and it was appropriate Urine drug screen ordered today - PQRS measures = - Patient's medications are documented in the chart. -Tobacco use is negative. -Patient's has not received pneumococcal vaccine. -Advanced care planning discussed, patient not eligible. -Opiate contract signed. -Pain positive and follow-up visit/procedure is scheduled. -Patient's blood pressure measured [170/81 ] , and documented in the record ,and patient will follow up with the primary care. -Patient's weight was measured and body mass index [ 25.1. ] within the normal limits and counseling was done. and patient instructed to follow-up with the primary care physician. -Patient was not identified as an unhealthy alcohol user
== END ==
LOC: PNWHC3 12:48
PROVIDERS: ATTEND Specialist
DX: Z45.1 Encounter for adjustment and management of infusion pump (principal); M96.1 Postlaminectomy syndrome, not elsewhere classified; Z79.891 Long term (current) use of opiate analgesic
CPT/HCPCS: 80307; 62370; G0482

== ENCOUNTER 2020-08-13 15:16 | Emergency (ER) | payer MEDICARE ==
[2020-08-13 15:26] VITALS: PULSE 96; TEMP 98.7
--- NOTE | 2020-08-13 16:29 | ED ---
Lower Extremity Injury HPI - General Chief Complaint: Extremity Injury, Lower Stated Complaint: fall Time Seen by Provider: 08/13/20 15:53 Source: patient Mode of arrival: EMS Limitations: physical limitation - History of Present Illness Initial Comments: Patient is a 65-year-old female presenting to emergency Department the chief complaint of a leg pain. Patient states she patient states her dog is going blind and went in front of her. States she attempted to maneuver around the dog when she felt a sudden "pop" in her right femur followed by sudden onset of pain. Patient states she went to the ground but did not have any injury to the head. No blood thinners lost consciousness. States there is a poor deformity in the right femur. Reports the pain was initially unbearable but EMS control the pain with 172 g of fentanyl. She states the pain is tolerable at this time. States she does go to pain management for back pain so she is used to large doses of narcotics. She denies any numbness or tingling. - Related Data Home Medications Medication Instructions Recorded Confirmed Intrathecal Opoid Pain Pump 1 dose INTRATHECA CONTINUOUS 04/17/14 06/25/20 Lisinopril-Hctz 10-12.5 mg 1 tab PO QAM 12/01/16 06/25/20 [Zestoretic 10-12.5] Levothyroxine Sodium [Synthroid] 25 mcg PO QAM 03/22/18 06/25/20 amLODIPine [Norvasc] 2.5 mg PO QAM 05/31/19 06/25/20 Aspirin 81 mg PO DAILY 08/27/19 06/25/20 Meloxicam [Mobic] 15 mg PO DAILY PRN 08/27/19 06/25/20 oxyCODONE HCL [OxyCONTIN] 1 tab PO Q6H PRN 01/24/20 06/25/20 ALPRAZolam [Xanax] 0.5 mg PO HS 06/19/20 06/25/20 Previous Rx's Medication Instructions Recorded Gabapentin [Neurontin] 300 mg PO TID #90 cap 10/24/19 tiZANidine HCL [Zanaflex] 4 mg PO Q6HR PRN #120 tab 10/24/19 Allergies Allergy/AdvReac Type Severity Reaction Status Date / Time erythromycin base Allergy Nausea & Verified 06/25/20 12:54 Vomiting Review of Systems ROS Statement: Those systems with pertinent positive or pertinent negative responses have been documented in the HPI. ROS Other: All systems not noted in ROS Statement are negative. Past Medical History Past Medical History: Cancer, CVA/TIA, Hypertension, Liver Disease, Musculoskeletal Disorder, Osteoarthritis (OA) Additional Past Medical History / Comment(s): hx. hepatitis B at age 15, DDD, hx cervical cancer, several mini strokes. Left rotator cuff injury 10/2017. bowel tumor-benign. Current sinus infection. History of Any Multi-Drug Resistant Organisms: None Reported Past Surgical History: Appendectomy, Back Surgery, Bowel Resection, Cholecystectomy, Hysterectomy Additional Past Surgical History / Comment(s): Pain pump, multiple female surgeries, lumbar fusions x2, iliac bone bone graft sites, LEFT CLAVICLE 05/14/17, Lt wrist. Pain pump replacement 08/29/19. Past Anesthesia/Blood Transfusion Reactions: No Reported Reaction Additional Past Anesthesia/Blood Transfusion Reaction / Comment(s): no problems with prior of blood transfusion Past Psychological History: Anxiety Smoking Status: Never smoker Past Alcohol Use History: Rare Past Drug Use History: Marijuana - Past Family History Mother Family Medical History: Cancer Additional Family Medical History / Comment(s): breast Sister(s) Family Medical History: Cancer, Deep Vein Thrombosis (DVT), Pulmonary Embolus Additional Family Medical History / Comment(s): ovarian ca, Father Family Medical History: Cancer, Myocardial Infarction (MD) Additional Family Medical History / Comment(s): skin General Exam Limitations: physical limitation General appearance: alert, in no apparent distress Head exam: Present: atraumatic, normocephalic, normal inspection Eye exam: Present: normal appearance, PERRL, EOMI Pupils: Present: normal accommodation ENT exam: Present: normal exam, normal oropharynx, mucous membranes moist, TM's normal bilaterally Neck exam: Present: normal inspection, full ROM. Absent: tenderness Respiratory exam: Present: normal lung sounds bilaterally. Absent: respiratory distress, wheezes, rales Cardiovascular Exam: Present: regular rate, normal rhythm, normal heart sounds GI/Abdominal exam: Present: soft. Absent: distended, tenderness, guarding, rebound Extremities exam: Present: tenderness (Tenderness over the bony deformity on the mid femur region.), normal capillary refill, other (+2 dorsalis pedis and posterior tibials bilateral. Sensation intact to proprioception and pain on the right lower extremity.). Absent: normal inspection (Obvious bony deformity in the right femur. This is not an open fracture.), full ROM (Limited range of motion due to pain), pedal edema, joint swelling, calf tenderness Back exam: Present: normal inspection, full ROM. Absent: tenderness, CVA tenderness (R), CVA tenderness (L) Neurological exam: Present: alert, oriented X3, normal gait Psychiatric exam: Present: normal affect, normal mood Skin exam: Present: warm, dry, intact, normal color Course Vital Signs 08/13/20 08/13/20 15:22 17:08 Temperature 98.7 F Pulse Rate 96 96 Respiratory 12 16 Rate Blood Pressure 157/91 177/92 O2 Sat by Pulse 97 98 Oximetry Medical Decision Making - Medical Decision Making Patient is a 55-year-old female presenting to emergency Department with a chief complaint of right leg pain. Patient does have history of a right distal femur fracture several months ago. Patient did receive 172 g of fentanyl in the ambulance. She also received an additional 0.5 mg of Dilaudid in the ED. Patient is tolerating the pain well. X-ray reveals a transverse midshaft femur fracture above the plate with screws. I spoke with Dr. Edge, the orthopedic surgeon, from [facility] who will accept the patient. This will be ER to ER transfer. Patient is resting comfortably and is hemodynamically stable. She will be sent via ambulance. Case discussed with DR Johnson - Lab Data Result diagrams: 08/13/20 16:56 Lab Results 08/13/20 08/13/20 Range/Units 16:56 16:56 PT 10.1 (9.0-12.0) sec INR 1.0 (<1.2) APTT 22.0 (22.0-30.0) sec Sodium 125 L (137-145) mmol/L Potassium 4.4 (3.5-5.1) mmol/L Chloride 96 L (98-107) mmol/L Carbon Dioxide 18 L (22-30) mmol/L Anion Gap 11 mmol/L BUN 11 (7-17) mg/dL Creatinine 0.98 (0.52-1.04) mg/dL Est GFR (CKD-EPI)AfAm 70 (>60 ml/min/1.73 sqM) Est GFR (CKD-EPI)NonAf 61 (>60 ml/min/1.73 sqM) Glucose 112 H (74-99) mg/dL Calcium 9.3 (8.4-10.2) mg/dL Total Bilirubin 0.7 (0.2-1.3) mg/dL AST 30 (14-36) U/L ALT 18 (4-34) U/L Alkaline Phosphatase 152 H (38-126) U/L Total Protein 6.8 (6.3-8.2) g/dL Albumin 4.4 (3.5-5.0) g/dL Disposition Clinical Impression: Femur fracture, right, Fall Disposition: OTHER INSTITUTION NOT DEFINED Condition: Good Additional Instructions: She will be transferred via EMS Is patient prescribed a controlled substance at d/c from ED?: No Referrals: Sonya Wiggins MD [Primary Care Provider] - 1-2 days Time of Disposition: 17:28 - Out of Hospital Transfer - Req. Specs Out of Hospital Transfer - Requested Specifics: Other Emergency Center ([facility])
--- NOTE | 2020-08-13 16:53 | XR ---
EXAMINATION TYPE: XR femur RT DATE OF EXAM: 08/13/2020 COMPARISON: 05/02/2020 HISTORY: Follow-up fracture TECHNIQUE: 7 views FINDINGS: There is an oblique fracture of the supracondylar distal femur. There is a plate with screw s fixing the fracture. There is right knee prosthesis. Fracture lines are still visible. There is min imal callus formation. There is a transverse fracture mid shaft of the femur at the upper end of the plate at the level of t he screw. There is displacement of the fragments 1 cm laterally of the distal fragment. The hip joint is anatomic. IMPRESSION: There is minimal healing of the supracondylar distal femur fracture. There is an acute transverse fracture mid shaft of the femur
[2020-08-13] MEDS ORDERED: HYDROmorphone 0.5 MG/0.5 ML SYRINGE IVP STA (16:59)
--- NOTE | 2020-08-13 17:00 | XR ---
EXAMINATION TYPE: XR chest 1V DATE OF EXAM: 08/13/2020 COMPARISON: NONE HISTORY: Fall. Pain. TECHNIQUE: Single view FINDINGS: There is no heart failure nor confluent pneumonic infiltrate. Heart size is normal. Costoph renic angles are clear. There is no evidence of pleural effusion or pneumothorax. There is deformity left clavicle consistent with old healed fracture. The ribs appear intact. There are no hilar masses. Mediastinum is within normal limits. IMPRESSION: No active cardiopulmonary disease. Normal heart.
[2020-08-13 17:09] VITALS: BP 177/92; RESP 16
[2020-08-13 17:15] LABS: Albumin 4.4 g/dL (3.5-5.0); Calcium 9.3 mg/dL (8.4-10.2); Potassium 4.4 mmol/L (3.5-5.1); Total Bilirubin 0.7 mg/dL (0.2-1.3); Total Protein 6.8 g/dL (6.3-8.2)
[2020-08-13 17:21] LABS: Prothrombin Time 10.1 sec (9.0-12.0)
[2020-08-13 17:26] LABS: HCT 39.4 % (34.0-46.0); HGB 13.1 gm/dL (11.4-16.0); MCH 32.7 pg (25.0-35.0); MCHC 33.4 g/dL (31.0-37.0); MCV 98.1 fL (80.0-100.0); RBC 4.01 m/uL (3.80-5.40); WBC 12.4 k/uL (3.8-10.6)
[2020-08-13 17:27] LABS: Basophils % (A) 0 %; Eosinophils % (A) 0 %; Lymphocytes # (A) 0.5 k/uL (1.0-4.8); Lymphocytes % (A) 4 %; Mean Platelet Volume 6.7; Monocytes # (A) 0.6 k/uL (0-1.0); Monocytes % (A) 5 %; Neutrophils # (A) 11.2 k/uL (1.3-7.7); Neutrophils % (A) 91 %; Platelet Count 297 k/uL (150-450); RDW 13.2 % (11.5-15.5)
[2020-08-13] MEDS ORDERED: HYDROmorphone 1 MG/ML 1 ML SYRINGE IVP STA (18:22)
== END 2020-08-13 18:45 | disposition other institution (70) ==
LOC: EC 15:16
DX: S72.451A Displaced supracondylar fracture without intracondylar extension of lower end of right femur, initial encounter for closed fracture (principal); I10 Essential (primary) hypertension; F41.9 Anxiety disorder, unspecified; Z79.82 Long term (current) use of aspirin; Z79.899 Other long term (current) drug therapy; Z79.890 Hormone replacement therapy; Z79.1 Long term (current) use of non-steroidal anti-inflammatories (NSAID); Z88.1 Allergy status to other antibiotic agents; Z86.73 Personal history of transient ischemic attack (TIA), and cerebral infarction without residual deficits; Z85.41 Personal history of malignant neoplasm of cervix uteri; X50.1XXA Overexertion from prolonged static or awkward postures, initial encounter
CPT/HCPCS: 36415; 80053; 85025; 85610; 85730; 73552; 71045; 99285; 96374; 96376; J1170 ×2

== ENCOUNTER → 2020-09-17 | Day surgery (SDC) | payer MEDICARE ==
[2020-09-17 13:41] VITALS: BP 178/74; PULSE 96; RESP 20
[2020-09-17 13:42] VITALS: TEMP 99.2
--- NOTE | 2020-09-17 14:44 | P.PCN ---
Date of Procedure: 09/17/20 Surgeon: Lola Shelton Pathology: none sent Condition: stable Description of Procedure: Procedure: Intrathecal pain pump analysis, programming and reprogramming, intrathecal pain pump refill. PREOPERATIVE DIAGNOSES: 1. near empty intrathecal pain pump . 2. 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opioid tolerance 2. failed back surgery syndrome lumbar area ANESTHESIA: None. CONDITION: Stable. Description of the procedure; The intrathecal opioid pump was analyzed and showed a current reservoir residual volume of 29 mls. Skin was prepped with ChloraPrep and draped in a sterile manner. I used 22- gauge needle found in the [employer]tronic intrathecal access to go through the central pump port. 28 mls were withdrawn. Then the new medication was injected incrementally with frequent aspiration to ensure delivery of the new medication inside the pump reservoir. The new medication was infused inside the pump reservoir through a filter provided the [employer]tr[employer] kit. The new medication concentration is: Dilaudid 6 pills per mL and bupivacaine 3 mg per mL. The patient's pain has been getting worse lately and that's why I'm going to give her a small dose of Dilaudid 0.05 mg over 1 hour and increased her rate to 7.99 mg a day. The patient had two pump revisions previously. She recently had a fracture in the right femur which was fixed surgically. The pump then was reprogrammed for a new reservoir volume of 40 mls and the rate of dilaudid 7.99 mg/d up from 7.6 mg a day, bupivacaine 0.399mg/d. The patient tolerated the procedure well. The patient denies any new neurologic symptoms in the lower extremities. Oral opioids: The patient takes oxycodone 20 mg 4 times a day
== END ==
LOC: PNWHC3 12:49
PROVIDERS: ATTEND Anesthesiology
DX: Z45.1 Encounter for adjustment and management of infusion pump (principal); Z79.891 Long term (current) use of opiate analgesic; M96.1 Postlaminectomy syndrome, not elsewhere classified
CPT/HCPCS: 62370

== ENCOUNTER → 2020-10-20 | Outpatient (CLI) | payer MEDICARE ==
[2020-10-20 10:40] VITALS: BP 181/80; PULSE 98; RESP 18; TEMP 98.9
--- NOTE | 2020-10-20 20:50 | P.PN ---
Subjective Progress Note Date: 10/20/20 This is a follow-up visit for this 65 years old female with a chronic history of severe low back pain, she is diagnosed with failed back surgery syndrome lumbar area and opioid tolerance, patient currently on intrathecal opioid therapy, recently patient reported that she started complaining of increased pain , and her pain is not controlled with the current medication management a few weeks ago we increased the intrathecal pain pump and she reported that she had 0 benefit after we increased the intrathecal pain medication she reported that her pain level was 8-10 over 10, is not able to ambulate she is not able to do activities of daily living secondary to the intensity of the pain Objective - Vital Signs Vital signs: Vital Signs Temp 98.9 F 10/20/20 10:35 Pulse 98 10/20/20 10:35 Resp 18 10/20/20 10:35 BP 181/80 10/20/20 10:35 Pulse Ox 96 10/20/20 10:35 - Exam -Constitutiona : Cooperative , not in acute distress . -HEENT : nech : supple , no Lymphadenopathy , normal thyroid size . eyes : no ptosis , no icterus, no photophobia . - neurologic : Cranial nerve II to XII intact , no focal neurological deffecit . -psychatric : alert , oriented X 3 , appropriate affect , intact judgment and insight . -Lymphatic : no Lymphadenopathy . - musculoskeltal : Lumber spine moter stegnth lower extremities ,thigh and legs 5/5 Right side , 5/5 Left side The right that the location of the pump incision healed appropriately and the thoracic incision healed appropriately there is no sign of infection No erythema and no discharge. Assessment and Plan Plan: Assessment and plan=1-failed back surgery syndrome , lumbar area. 2-opioid tolerance. Patient complaining of severe low back and mid back pain and is not controlled with the current management I discussed with the patient option of increasing intrathecal opioid therapy, and I explained to the patient that we will increase the opioid therapy today and if she continued to have severe pain after that , then we have to do the dye studies to confirm that there is any problem with the catheter connection to the pump, today I will increase her intrathecal medication does Intrathecal pain pump analyzed assure patient currently receiving intrathecal therapy with Dilaudid concentration 6 mg per mL and bupivacaine concentration is 3 mg per mL and patient receiving a daily dose of Dilaudid 0.79 mg per day and bupivacaine 0.39 mg per day, and because patient complaining of severe pain I will increase the intrathecal space therapy by 15% which is equal to Dilaudid 0.91 mg per day and bupivacaine 0.45 mg per day, patient will continue to use oxycodone immediate release 20 mg every 6 hours when necessary and Neurontin 400 mg 3 times a day and Zanaflex 4 mg 3 times a day patient, will be contacted in the next few days but to check on her condition , if she gets no relief in the next few days then we have to schedule her to have the dye study otherwise if she got good relief we can continue the same management Time with Patient: Less than 30
== END | disposition home or self-care (01) ==
LOC: PNWHC3 10:27
PROVIDERS: ATTEND Specialist
DX: M96.1 Postlaminectomy syndrome, not elsewhere classified (principal); F11.90 Opioid use, unspecified, uncomplicated; M54.5 Low back pain; Z79.899 Other long term (current) drug therapy
CPT/HCPCS: 62368

== ENCOUNTER → 2020-10-30 | Outpatient (CLI) | payer MEDICARE ==
[2020-10-30 11:44] VITALS: BP 183/80; PULSE 103; RESP 16; TEMP 98.1
--- NOTE | 2020-10-30 15:15 | P.PCN ---
Date of Procedure: 10/30/20 Procedure(s) Performed: OPERATION: Intrathecal pain pump analysis, programming and reprogramming, PREOPERATIVE DIAGNOSES: 1. Intrathecal pain therapy, pain is not controlled with the current dose of the medication. 2. 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 ANESTHESIA: None. CONDITION: Stable. Description of the procedure; Intrathecal pain pump analysed ,it showed patient currently had reservoir volume[ 34.1] mL. The patient is receiving medication Dilaudid 6 mg/ ml, and bupivacaine concentration 3 mg/ml. Patient receiving daily dose of Dilaudid 9.19 mg/day and bupivacaine 0.45 mg/day. Pain is well controlled , patient using medication for breakthrough pain orally . The intrathecal pain pump dose increase 7% which is equal to Dilaudid 0.98 mg per day, and bupivacaine 0.49 mg per day This is 65 years old female with a chronic history of severe low back pain p atient had intrathecal pain pump implanted several years ago, and she is currently on intrathecal pain therapy should the pain is not controlled with the current regimen for this reason I increased her intrathecal dose , last visit she felt some improvement but she continued to have severe pain intensity of the pain is 9/10 interfere with her quality of life and interfere with her ability to function, and she the patient here today to increase her intrathecal dose again, he increase the dose 7%, we will check an reevaluated within few days
== END | disposition home or self-care (01) ==
LOC: PNWHC3 11:30
PROVIDERS: ATTEND Anesthesiology
DX: Z45.1 Encounter for adjustment and management of infusion pump (principal); M54.5 Low back pain; Z98.890 Other specified postprocedural states
CPT/HCPCS: 62368; 99211

== ENCOUNTER → 2020-12-10 | Day surgery (SDC) | payer MEDICARE ==
[2020-12-10 10:14] VITALS: BP 147/80; PULSE 102; RESP 18; TEMP 98.2
--- NOTE | 2020-12-10 10:46 | P.PN ---
Subjective Progress Note Date: 12/10/20 This is a 65-year-old lady with history of failed back surgery syndrome and intrathecal Dilaudid pump infusion. The patient's pain has been getting worse lately with extension of her painful areas from the lumbar to the thoracic area however she denies any new neurologic changes in her legs with no weakness in the lower extremities. She does describe some difficulty controlling her bladder activity well. The patient has chronic numbness in the medial aspect of the right leg and foot after she had her femur ORIF. She still takes oxycodone 20 mg 4 times a day, Zanaflex 4 mg 4 times a day and Neurontin 400 mg 3 times a day. Patient denies new-onset weakness, bowel/bladder incontinence, or any other signs or symptoms of cauda equina syndrome. There are no signs of acute intoxication, and no indications of medication diversion or overuse. In addition to above, 13-point review of systems is also negative for chest pain, shortness of breath, changes in vision, changes in hearing, new onset weakness, abdominal pain, diarrhea, extreme fatigue, malaise, fever, skin changes, homicidal or suicidal ideation, or bowel or bladder incontinence. Vital Signs: Reviewed in EMR Gen: AAOx3, NAD HEENT: PERRLA,hearing grossly normal Pulm: resp unlabored Neck: supple, trachea midline Neuro exam of the lower extremities: Normal muscle strength in the lower extremities bilaterally Straight leg raising test: Negative bilaterally Bull's test: Range of motion of the lumbar spine: Facet loading test: Tenderness in the paravertebral musculature: Positive tenderness in the lumbar and thoracic paravertebral musculature Neuro: CN II-XII grossly intact, Imaging: Reviewed in EMR/chart Assessment: Failed back surgery syndrome Intrathecal Dilaudid infusion pump Plan: 1. Explanation: Opioid and psychological risk scores were reviewed. Diagnoses, prognoses, and multiple treatment options including but not limited to physical therapy, interventional therapies, adjuvant medical therapies, narcotic medication therapies, and surgery were discussed with the patient and all questions were answered to the patient's satisfaction. 2. Opioid agreement: Signed with the patient and the patient is warned not to use opioids while driving or before driving and not to combine opioids with benzodiazepines or alcohol. 3. Counseling: The patient was counseled extensively on SMOKING CESSATION, BODY MASS INDEX, EXERCISE. Specifically, the patient was instructed regarding the importance of smoking cessation, obesity, and exercise in the context of both chronic pain and overall health. 4. Procedures: Schedule for pump study. The patient's pain has been getting worse lately even with it does increase of the intrathecal Dilaudid. The pump study is normal and then we will plan on doing an MRI of the thoracic and lumbar spines to rule out granuloma formation. The patient denies any new neurologic symptoms in her legs however she does have difficulty controlling her bladder. 5. Consultations: None 6. Investigations: None 7. Medications: Continue oral oxycodone, Zanaflex and Neurontin 8. Disposition: Proceed with the above-mentioned procedure as soon as possible 9. Maps were reviewed and were appropriate. Controlled Substance Measures Is patient prescribed a controlled substance at discharge?: Yes When asked, does pt state using other controlled substances?: No If prescribed controlled substance>3 days was MAPS reviewed?: Yes If Rx opioid, was Start Talking consent form obtained?: Yes If opioid is for acute pain is fill amount 7 days or less?: No Was information provided regarding opioid addiction?: Yes Objective - Vital Signs Vital signs: Vital Signs Temp 98.2 F 12/10/20 10:09 Pulse 102 H 12/10/20 10:09 Resp 18 12/10/20 10:09 BP 147/80 12/10/20 10:09 Pulse Ox 95 12/10/20 10:09
== END ==
LOC: PNWHC3 10:01
PROVIDERS: ATTEND Anesthesiology
DX: Z45.49 Encounter for adjustment and management of other implanted nervous system device (principal); M96.1 Postlaminectomy syndrome, not elsewhere classified; E66.9 Obesity, unspecified; Z68.23 Body mass index [BMI] 23.0-23.9, adult; F17.200 Nicotine dependence, unspecified, uncomplicated; Z79.891 Long term (current) use of opiate analgesic; Z79.899 Other long term (current) drug therapy; R20.0 Anesthesia of skin
CPT/HCPCS: 99211

== ENCOUNTER → 2020-12-15 | Outpatient (CLI) | payer MEDICARE, SELFPAY ==
[2020-12-15 13:28] VITALS: BP 185/79; PULSE 86; RESP 18; TEMP 987
--- NOTE | 2020-12-15 14:36 | P.PCN ---
Date of Procedure: 12/15/20 Procedure(s) Performed: Procedure= intrathecal pain pump analysis with reprogramming ,and no refill. Preop diagnoses= failed back surgery syndrome and lumbar area Intractable low back pain Opioid tolerance Postop diagnoses= same as preoperative diagnoses. Condition= stable. Anesthesia=none. Complications= none This is a follow-up visit for this 65 years old female with a chronic history of severe low back pain, she is diagnosed with failed back surgery syndrome lumbar area and opioid tolerance, patient currently on intrathecal opioid therapy, recently patient reported that she started complaining of increased pain , and her pain is not controlled with the current medication management , patient continued to have increased back pain which is preventing her from doing any activity 0, is not able to ambulate she is not able to do activities of daily living secondary to the intensity of the pain, she denies any motor or sensory deficit, she denies any sleepiness, and there is concern about the malfunction of the pump , previously with discussed with the patient option of doing a dye study to evaluate the connection between the catheter and the pump but the dye study was not done, patient canceled the procedure, patient here today to discuss about the options, and I explained to the patient that we can increase the pain pump today and I will give her a bolus and if she benefits from addend this means that the pump is functioning well and if she has no benefit then the other option is to proceed with a dye study, the intrathecal pump analyzed assure patient currently receiving. Hydromorphone concentration 6 mg per mL , bupivacaine concentration 3 mg per mL Residual volume 26 mL Daily dose hydromorphone 0.98 mg per day bupivacaine 0.49 mg per day Goals patient reported that her pain level is significantly high all the time is 8/10 He shouldn't give him a bolus of hydromorphone 0.4 mg over 5 minutes And I increased the daily dose of hydromorphone to 1.13 mg per day and increase the bupivacaine to 0.56 mg per day Which is equal to 15% increase of her daily dose, she'll would be reevaluated in 2 days and will refill of the pump
== END | disposition home or self-care (01) ==
LOC: PNWHC3 12:59
PROVIDERS: ATTEND Specialist
DX: M51.24 Other intervertebral disc displacement, thoracic region (principal); M51.26 Other intervertebral disc displacement, lumbar region
CPT/HCPCS: 99211

== ENCOUNTER → 2020-12-17 | Day surgery (SDC) | payer MEDICARE ==
[2020-12-17 14:34] VITALS: BP 135/68; PULSE 85; RESP 18; TEMP 98.2
--- NOTE | 2020-12-17 15:28 | P.PCN ---
Date of Procedure: 12/17/20 Procedure(s) Performed: OPERATION: Intrathecal pain pump analysis, programming and reprogramming, and intrathecal pain pump refill. PREOPERATIVE DIAGNOSES: 1. intrathecal pain pump time for refill. 2. 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 ANESTHESIA: None. CONDITION: Stable. Description of the procedure; Intrathecal pain pump analysed ,it showed patient currently had reservoir volume[ 26.1 ] mL. The patient is receiving medication Dilaudid 6 mg/ ml, and bupivacaine concentration 3 mg/ml. Patient receiving daily dose of 1.13 mg/day and bupivacaine 0.56 mg/day. Pain is well controlled , patient using medication for breakthrough pain orally . The location of the pump ( Right Buttuck ) Prepped with chlorhexidine x3 , then using 22-gauge needle Eve kit advanced through the pump port, Total of 32 ml removed from the pump, expected volume 26 ml , the pump refi lled with the new medication total volume 40 ml . The concentration of Dilaudid [ 6] mg /ml , and the bupivacaine concentration [3 ] mg/ml. We will increase the daily dose of Dilaudid [1.18 ] mg/day and bupivacaine [0.59 ] mg/day she is equal to 5% increase in her daily dose And this increased because patient continued to complain of severe back pain which is increased with any activity and her pain level is 9/10 patient will follow up with the pain clinic in 3 months. Prescription refill for was given to the patient Zanaflex 4 mg every 6 hours 120 with 2 refills, oxycodone IR 30 mg every 6 hours when necessary dispense 120 with 2 refills Neurontin 400 mg 3 times a day dispense 90 with 2 refills note= patient continued to complain of severe mid and low back pain which is not controlled with the current intrathecal dose of pain medication for this reason that he increase the daily dose today 5%, also I increased the daily was also a few days ago, patient had no focal neurological deficit she had no weakness, and her upper or lower extremities, and she reported that her pain increased significantly over the last few weeks, and she reported that since she fell a few months ago , the intensity of the pain increased significantly, for this reason I did discuss with the patient the option of ordering a dye study to see if there is any problem with the catheter into the intrathecal pain pump, and also to see if there is any malfunction in the, also we will order MRI for the thoracic and lumbar spine, to evaluate if there is any new etiology or if there is any granuloma, formation of the catheter tip, patient is very hesitant to have anything done because concerned about the copayment and the cost of the procedure and she is concerned about agreement patient will check with her insurance how much her payments will be and if she can afford that she is willing to proceed with the MRI of the thoracic and lumbar spine and also with a dye study
== END ==
LOC: PNWHC3 13:52
PROVIDERS: ATTEND Specialist
DX: Z45.1 Encounter for adjustment and management of infusion pump (principal); Z79.891 Long term (current) use of opiate analgesic; M96.1 Postlaminectomy syndrome, not elsewhere classified
CPT/HCPCS: 62370

== ENCOUNTER → 2020-12-24 | Outpatient (CLI) | payer MEDICARE, SELFPAY ==
--- NOTE | 2020-12-24 17:24 | BD ---
EXAMINATION TYPE: Axial Bone Density DATE OF EXAM: 12/24/2020 COMPARISON: NONE CLINICAL HISTORY: 65 YR OLD FEMALE.....ICD-10 CODE: N95.1 POST MENOPAUSE Height: 66.2 Weight: 164 FRAX RISK QUESTIONS: History of Fracture in Adulthood: YES Secondary Osteoporosis: YES 3. Menopause before 45: YES RISK FACTORS HISTORY OF: Hip Fracture (Right/Left): MAGDY UP TO RT HIP HX OF RT LEG AND ANKLE FX 2019 History of Wrist Fracture: LT HAND FX, NO SURG Surgery to Spine SI JT ALL THE WAY UP TO HEAD, SURGICAL SCREWS AND RODS, Family History of Osteoporosis: YES, HER SISTER Active: USES CANE, NO Diet low in dairy products/other sources of calcium: YES Postmenopausal woman: YES, HYST AND UNDERDEVELOPED OVARIES AT 28 YRS Take estrogen and/or progesterone medications: YES, FOR A SHORT WHILE ONLY Lost more than 2 inches in height since high school: YES Hyperparathyroidism: NO Adrenal Insufficiency: NO MEDICATIONS: Thyroid Medications: YES, SYNTHROID FOR ABOUT 15 YRS Additional Medications: BP MEDS, XANAX, VIT D, AND MULTIVITAMIN, AND ENSURE DRINKS, CALCIUM Additional History: HX OF CERVICAL CANCER, HYPERTENSION, EXAM MEASUREMENTS: SPINE NOT SCANNED, SURGICAL REPAIR AND ENTIRE LENGTH OF SPINE Bone mineral density about the L hip (g/cm2): 0.949 T Score values are as follows: -----L Neck: -1.4 -----L Total: -0.5 Bone mineral density FIRST BONE DENSITY STUDY AT [facility] FRAX%s: THERE IS A 14.5% CHANCE FOR A MAJOR OSTEOPOROTIC FX AND A 1.5% FOR HIP......PROBABILITY FOR FX IN 10 YRS TIME Bone mineral density about the R Wrist (g/cm2): 0.451 T Score values are as follows: -----Dist. R+U: -2.5 -----Prox. R+U: -3.8 -----Radius total: -4.0 Bone mineral density FIRST AT [facility] IMPRESSION: Osteoporosis (T Score less than -2.5). There is increased fracture risk and therapy is usually indicated based on age. Re-Screen 1-2 years. NOTE: T-SCORE=SD OF THE YOUNG ADULT MEAN.
--- NOTE | 2020-12-26 11:01 | MM ---
Reason for exam: screening (asymptomatic). Last mammogram was performed 3 years and 10 months ago. History: Patient is postmenopausal and has history of endometrial cancer at age 25. Family history of breast cancer in mother at age 68. Took estrogen for 8 months beginning at age 20. Physical Findings: A clinical breast exam by your physician is recommended on an annual basis and results should be correlated with mammographic findings. MG 3D Screening Mammo W/Cad Bilateral CC and MLO view(s) were taken. Prior study comparison: February 22, 2017, bilateral MG 3d screening mammo w/cad. November 19, 2014, bilateral MG screening mammo w CAD. The breast tissue is heterogeneously dense. This may lower the sensitivity of mammography. There is no discrete abnormality. No significant changes when compared with prior studies. ASSESSMENT: Negative, BI-RAD 1 RECOMMENDATION: Routine screening mammogram of both breasts in 1 year.
== END | disposition home or self-care (01) ==
LOC: RADBDWWP 07:59
PROVIDERS: ATTEND Internal Medicine
DX: Z12.31 Encounter for screening mammogram for malignant neoplasm of breast (principal); M81.0 Age-related osteoporosis without current pathological fracture
CPT/HCPCS: 77063; 77067; 77080

== ENCOUNTER → 2021-03-11 | Day surgery (SDC) | payer MEDICARE ==
[~2021-03-11] MED LIST changes: +BUPIVACAINE UP TO 8 MG/ML, 31-60 ML SYRINGE MC ONE; +HYDROMORPHONE FOR ANAZAO - PER 4 MG MISCELLANE ONE; -LACTATED RINGERS 1,000 ML IV SCH; -LIDOCAINE 1% 20 ML VIAL (10MG/ML) FOR IV START INTRADERMA PRN; -ONDANSETRON 4 MG/2 ML VIAL IVP ONE
--- NOTE | 2021-03-11 13:04 | P.PCN ---
Date of Procedure: 03/11/21 Procedure(s) Performed: OPERATION: Intrathecal pain pump analysis, programming and reprogramming, and intrathecal pain pump refill. PREOPERATIVE DIAGNOSES: 1. intrathecal pain pump time for refill. 2. 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 ANESTHESIA: None. CONDITION: Stable. Description of the procedure; Intrathecal pain pump analysed ,it showed patient currently had reservoir volume[ 23.4 ] mL. The patient is receiving medication Dilaudid 6 mg/ ml, and bupivacaine concentration 3 mg/ml. Patient receiving daily dose of 1.18 mg/day and bupivacaine 0.59 mg/day. Pain is well controlled , patient using medication for breakthrough pain orally . The location of the pump ( Right Buttuck ) Prepped with chlorhexidine x3 , then using 22-gauge needle BView kit advanced through the pump port, Total of 23 ml removed from the pump, expected volume 23.4 ml , the pump r efilled with the new medication total volume 40 ml . The concentration of Dilaudid [ 6] mg /ml , and the bupivacaine concentration [3 ] mg/ml. We will increase the daily dose of Dilaudid [1.27] mg/day and bupivacaine [0.63 ] mg/day ,which is equal to 7% increase in her daily dose And this increased because patient continued to complain of severe back pain which is increased with any activity and her pain level is 9/10 patient will follow up with the pain clinic in 3 months. Prescription refill for was given to the patient Zanaflex 4 mg every 6 hours 120 with 2 refills, oxycodone IR 30 mg every 6 hours when necessary dispense 120 with 2 refills Neurontin 400 mg 3 times a day dispense 90 with 2 refills note= patient continued to complain of severe mid and low back pain which is not controlled with the current intrathecal dose of pain medication for this reason that he increase the daily dose today 7%, also I increased the daily was also a few days ago, patient had no focal neurological deficit she had no weakness, and her upper or lower extremities, and she continued to have severe neck pain and low back pain , for this reason, I did discuss with the patient the option of ordering a dye study to see if there is any problem with the catheter into the intrathecal pain pump, and also to see, if there is any malfunction in the, also we will order MRI for the thoracic and lumbar spine, to evaluate if there is any new etiology or if there is any granuloma, formation of the catheter tip, patient is very hesitant to have anything done, because concerned about the copayment and the cost of the procedure, and she is concerned about the co payments. - PQRS measures = - Patient's medications are documented in the chart. -Tobacco use is negative and counseling.Given. -Patient's has not received pneumococcal vaccine. -Advanced care planning discussed, patient not eligible. -Opiate contract signed. -Pain positive and follow-up visit/procedure is scheduled. -Patient's blood pressure measured [ 119/66 ] , and documented in the record ,and patient will follow up with the primary care. -Patient's weight was measured and body mass index [ ] above the,normal limits and counseling was done. and patient instructed to follow-up with the primary care physician. -Patient was not identified as an unhealthy alcohol user
[2021-03-11 13:12] VITALS: BP 119/66; PULSE 104; RESP 18; TEMP 98.4
== END ==
LOC: PNWHC3 12:17
PROVIDERS: ATTEND Specialist
DX: Z45.1 Encounter for adjustment and management of infusion pump (principal); M96.1 Postlaminectomy syndrome, not elsewhere classified; Z79.891 Long term (current) use of opiate analgesic
CPT/HCPCS: 62370; J1170

== ENCOUNTER → 2021-06-03 | Day surgery (SDC) | payer MEDICARE ==
[2021-06-03 12:23] VITALS: BP 146/77; PULSE 80; RESP 18; TEMP 98.2
--- NOTE | 2021-06-03 12:40 | P.PCN ---
Date of Procedure: 06/03/21 Description of Procedure: OPERATION: Intrathecal pain pump analysis, programming and reprogramming, and intrathecal pain pump refill. PREOPERATIVE DIAGNOSES: 1. intrathecal pain pump time for refill. 2. 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 ANESTHESIA: None. CONDITION: Stable. Description of the procedure; Intrathecal pain pump analysed ,it showed patient currently had reservoir volume[ 23.4 ] mL. The patient is receiving medication Dilaudid 6 mg/ ml, and bupivacaine concentration 3 mg/ml. Patient receiving daily dose of 1.18 mg/day and bupivacaine 0.59 mg/day. Pain is well controlled , patient using medication for breakthrough pain orally . The location of the pump ( Right Buttuck ) Prepped with chlorhexidine x3 , then using 22-gauge needle PlayFirst kit advanced through the pump port, Total of 23 ml removed from the pump, expected volume 23.4 ml , the pump refilled with the new medication total volume 40 ml . The concentration of Dilaudid [ 6] mg /ml , and the bupivacaine concentration [3 ] mg/ml. the daily dose of Dilaudid [1.27] mg/day and bupivacaine [0.63 ] mg/day And this increased because patient continued to complain of severe back pain which is increased with any activity and her pain level is 9/10 patient will follow up with the pain clinic in 3 months. Prescription refill for was given to the patient Zanaflex 4 mg every 6 hours 120 with 2 refills, oxycodone IR 20 mg every 6 hours when necessary dispense 120 with 2 refills Neurontin 400 mg 3 times a day dispense 90 with 2 refills
== END ==
LOC: PNWHC3 12:13
PROVIDERS: ATTEND Anesthesiology
DX: M96.1 Postlaminectomy syndrome, not elsewhere classified (principal)
CPT/HCPCS: 62370; J1170; G0463; 99211

== ENCOUNTER → 2021-08-26 | Day surgery (SDC) | payer MEDICARE ==
--- NOTE | 2021-08-26 12:55 | P.PCN ---
Date of Procedure: 08/26/21 Procedure(s) Performed: OPERATION: Intrathecal pain pump analysis, programming and reprogramming, and intrathecal pain pump refill. PREOPERATIVE DIAGNOSES: 1. intrathecal pain pump time for refill. 2. 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 ANESTHESIA: None. CONDITION: Stable. Description of the procedure; Intrathecal pain pump analysed ,it showed patient currently had reservoir volume[ 22.2 ] mL. The patient is receiving medication Dilaudid 6 mg/ ml, and bupivacaine concentration 3 mg/ml. Patient receiving daily dose of 1.27 mg/day and bupivacaine 0.63 mg/day. Pain is well controlled , patient using medication for breakthrough pain orally . The location of the pump ( Right Buttuck ) Prepped with chlorhexidine x3 , then using 22-gauge needle Ticket[employer] kit advanced through the pump port, Total of 23 ml removed from the pump, expected volume 22.2 ml , the pump refilled with the new medication total volume 40 ml . The concentration of Dilaudid [ 6] mg /ml , and the bupivacaine concentration [3 ] mg/ml. We will increase the daily dose of Dilaudid [1.33] mg/day and bupivacaine [0.66 ] mg/day ,which is equal to 5% increase in her daily dose And this increased because patient continued to complain of severe back pain which is increased with any activity and her pain level is 6-7/10 patient will follow up with the pain clinic in 3 months. Prescription refill for was given to the patient Zanaflex 4 mg every 6 hours 120 with 2 refills, oxycodone IR 30 mg every 6 hours when necessary dispense 120 with 2 refills Neurontin 400 mg 3 times a day dispense 90 with 2 refills note= patient continued to complain of severe mid and low back pain which is not controlled with the current intrathecal dose of pain medication for this reason that he increase the daily dose today 5%, also I increased the daily was also a few days ago, patient had no focal neurological deficit she had no weakness, and her upper or lower extremities, and she continued to have severe neck pain and low back pain , for this reason, I did discuss with the patient the option of ordering a dye study to see if there is any problem with the catheter into the intrathecal pain pump, and also to see, if there is any malfunction in the, also we will order MRI for the thoracic and lumbar spine, to evaluate if there is any new etiology or if there is any granuloma, formation of the catheter tip, patient is very hesitant to have anything done, because concerned about the copayment and the cost of the procedure, and she is concerned about the co payments. - PQRS measures = - Patient's medications are documented in the chart. -Tobacco use is negative and counseling.Given. -Patient's has not received pneumococcal vaccine. -Advanced care planning discussed, patient not eligible. -Opiate contract signed. -Pain positive and follow-up visit/procedure is scheduled. -Patient's blood pressure measured [ 177/72] , and documented in the record ,and patient will follow up with the primary care. -Patient's weight was measured and body mass index [ ] above the,normal limits and counseling was done. and patient instructed to follow-up with the primary care physician. -Patient was not identified as an unhealthy alcohol user
[2021-08-26 13:37] VITALS: BP 177/87; PULSE 77; RESP 18
== END ==
LOC: PNWHC3 12:03
PROVIDERS: ATTEND Specialist
DX: M96.1 Postlaminectomy syndrome, not elsewhere classified (principal)
CPT/HCPCS: 62370; 80307; G0482; J1170

== ENCOUNTER → 2021-11-19 | Day surgery (SDC) | payer MEDICARE ==
[2021-11-19 13:49] VITALS: BP 183/79; PULSE 94; RESP 18; TEMP 98.3
--- NOTE | 2021-11-19 14:45 | P.PCN ---
Date of Procedure: 11/19/21 Description of Procedure: Preoperative diagnosis: Lumbar post laminectomy, and chronic pain syndrome Status post intrathecal pump for chronic pain management Opioid tolerant, and dependent Postoperative diagnosis: Lumbar post laminectomy, and chronic pain syndrome Status post intrathecal pump for chronic pain management Opioid tolerant PROCEDURES: 1. Intrathecal pump analysis. 2. Intrathecal pump reprogramming. 3. Intrathecal pump refill ANESTHESIA: None. EBL: None. COMPLICATIONS: None. IV FLUIDS: None. PROCEDURE INDICATION: Patient is well known to pain clinic for management of intrathecal pump for his chronic pain management. Patient denied any side effects with the medications. But patient complaining low back pain, rated 8 out of 10 in severity. On examination lower extremity muscle strength normal, no clonus. Patient came here for pump refill after 3 months duration. PROCEDURE DESCRIPTION: The patient was seen and identified in the preoperative area. Risks, benefits, complications, and alternatives were discussed with the patient. The patient agreed to proceed with the procedure. Intrathecal pump was analyzed and displayed the following information: Type: SynchroMed Medication: Dilaudid 6 mg/ml Bupivacaine 3 MG per mL infusion at 1.3344 mg/day Pump Volume: 40 ml [place] Volume: 21.1 ml PTM: Disabled At this time, the area of the intrathecal pump was exposed, prepped with ChloraPrep x1 , and draped in the usual sterile fashion. After which, the [employer] template was used to identify the area of the skin overlying the refill port. After which, a 22-gauge Mims needle attached to an extension tubing, which was clamped, attached to a syringe and inserted through the skin into the refill port. At that point, 22 mL of clear fluid was aspirated. The tubing was reclamped. This was discarded. A new medication was then identified from pharmacy, . This was then attached to a filter, which was primed and subsequently injected into the pump in increments with intermittent aspiration to ensure placement into the intrathecal pump. At this point, the pump was reprogrammed. The dose was decreased by 10 % as per patient had intrathecal pump is not helping in relieving her pain, only oral medications are helping. Type: SynchroMed Type II B Medication: Dilaudid 6 mg/ml Bupivacaine 3 MG per mL infusion at 1.2004 mg/day Pump Volume: 40 ml [place] Volume: 40 ml PTM: Disabled The patient tolerated the procedure well and was sent home from the discharge area once meeting discharge criteria. Plan: The patient will follow up for further management and pump refills. Patient was given #1 oxycodone IR 20 mg by mouth by mouth every 8- 6 hours as needed for breakthrough pain for 2 refills #2 Neurontin 400 mg by mouth every 8 hours dispense 90 with 2 refills #3 Zanaflex 4 mg by mouth every 8 hours as needed for muscle spasm dispense 90 with 2 refills #4 naloxone 4 mg intranasal for respiratory depression as needed dispense #2. #5 Mobic 15 mg by mouth daily from her primary care physician #6 Xanax 1 mg by mouth daily for anxiety from her primary care physician. Plan to decrease her pain pump medication as tolerated in future, also discussed with the patient regarding pain pump dye study but patient wants to go for insurance changes. Patient doesn't notice any benefit from having intrathecal pain pump. Patient also wants to gradually decrease her intrathecal pain pump medication. Had a lengthy discussion with the patient regarding narcotic medication interaction with benzodiazepines. But patient disappointed while discussing regarding side effects that patient is well aware all this problems with the medications, and due to her back surgeries patient demanding that she needs to be all on these medicines to control her pain, and anxiety, and sleep. Patient also in patient not to drive taking all these medications which may increases the risk of motor vehicle accident. Patient again disappointed that she doesn't want to be teaching all the information as she is well aware of all the complications with the medications. Opioid agreement reviewed with the patient: Patient was thoroughly discussed regarding the medication side effects, complications associated with narcotic use. Patient recommended do not drive while on narcotic medications, any other sedative medications, and illicit drugs including marijuana. Patient clearly understood. Patient has signed narcotic agreement and was again asked to re-read this document and will be given a copy to take home if requested. This document outlines the policies of the [facility]. It specifically counsels the patient to not misuse, overuse, abuse, divert, or sell medications, and to take them as prescribed by only one healthcare provider and store the medications in a safe and preferably locked location. This document also counsels against driving while using narcotic medications and also against using any alcohol or illicit or recreational drugs in conjunction with opioids. The patient verbalized understanding to staff that lack of compliance with any of the above will likely result in failure to renew narcotic prescriptions, possible discharge from the clinic, and possible legal ramifications thereafter. In future refill we will change Dilaudid preservative-free 3 mg/ml Bupivacaine preservative-free 1.5 mg/ml . Planning to decrease the pain pump concentration as tolerated as every time we are removing more than 20 mL of IT pain pump mixture at the time of refill.
== END ==
LOC: PNWHC3 12:27
DX: Z45.1 Encounter for adjustment and management of infusion pump (principal); G89.4 Chronic pain syndrome; M96.1 Postlaminectomy syndrome, not elsewhere classified; Z79.891 Long term (current) use of opiate analgesic
CPT/HCPCS: 62370; J1170; G0463; 99211

== ENCOUNTER 2022-05-06 13:57 | Day surgery (SDC) | payer MEDICARE ==
[2022-05-03 11:42] VITALS: BMI 25.0
[~2022-05-06 13:57] MED LIST changes: -BUPIVACAINE UP TO 8 MG/ML, 31-60 ML SYRINGE MC ONE; -HYDROMORPHONE FOR ANAZAO - PER 4 MG MISCELLANE ONE; +HYDROmorphone 0.5 MG/0.5 ML SYRINGE IVP PRN; +LACTATED RINGERS 1,000 ML IV SCH; +LIDOCAINE 1% (10MG/ML) FOR IV START INTRADERMA PRN
[2022-05-06] MEDS ORDERED: BUPIVACAINE UP TO 8 MG/ML, 31-60 ML SYRINGE MC ONE (13:58)
[2022-05-06] MEDS ORDERED: HYDROMORPHONE FOR ANAZAO - PER 4 MG MISCELLANE ONE (13:58)
[2022-05-06 14:26] VITALS: RESP 16; TEMP 98
--- NOTE | 2022-05-06 15:36 | P.PCN ---
Date of Procedure: 05/06/22 Procedure(s) Performed: OPERATION: Intrathecal pain pump analysis, programming and reprogramming, and intrathecal pain pump refill. Dye study of intrathecal pain pump. PREOPERATIVE DIAGNOSES: 1. intrathecal pain pump time for refill. 2. opioid tolerance 3. failed back surgery syndrome lumbar area 4. Malfunction of intrathecal pain pump catheter/disconnection of intrathecal pain pump catheter. POSTOPERATIVE DIAGNOSES: Same as preoperative diagnosis. ANESTHESIA: None. CONDITION: Stable. Description of the procedure; Intrathecal pain pump analysed ,it showed patient currently had reservoir volume[ 21.1 ] mL. The patient is receiving medication Dilaudid 6 mg/ ml, and bupivacaine concentration 3 mg/ml. Patient receiving daily dose of 1.31mg/day and bupivacaine 0.65 mg/day. Pain is well controlled , patient using medication for breakthrough pain orally . The location of the pump ( Right Buttuck ) Prepped with chlorhexidine x3 , then using 22-gauge needle [employer] kit advanced through the pump port, Total of 23 ml removed from the pump, expected volume 22.2 ml , the pump re filled with the new medication total volume 40 ml . The concentration of Dilaudid [ 6] mg /ml , and the bupivacaine concentration [3 ] mg/ml. We will keep the daily dose of Dilaudid [1.31] mg/day and bupivacaine [0.65 ] mg/day ( NO change in the daily does ). And after that using [employer] port accessed Kit , 24-gauge needle advanced through the access port under fluoroscopy guidance, and after needle placement confirmed that it's inside the access port, I was able to move 3 mL of clear fluid, then after that 20 ML of Isovue 200 , injected and there was no flow of the Isovue to the spinal canal, and I did not visualize any Isovue on the spinal canal, which means that the medication is not going is not going to the spinal canal, and patient need to have the intrathecal pain pump catheter replaced, patient will be referred to neuro surgeon for evaluation for replacement of the intrathecal pain pump catheter, patient reported that she doesn't want to place the catheter currently and she has to think about it, After the dye study was done and was able to do priming bolus, patient will follow up with the pain clinic in 3 months. Prescription refill for was given to the patient Zanaflex 4 mg every 6 hours 120 with 2 refills, oxycodone IR 30 mg every 6 hours when necessary dispense 120 with 2 refills Neurontin 400 mg 3 times a day dispense 90 with 2 refills
--- NOTE | 2022-05-06 15:59 | FL ---
EXAMINATION TYPE: FL guided pain mgmt statistic DATE OF EXAM: 05/06/2022 HISTORY: Fluoroscopy time 40 seconds of fluoroscopy provided. IMPRESSION: 1. Fluoroscopy time.
[2022-05-06 16:04] VITALS: BP 132/73; PULSE 67
== END 2022-05-06 15:50 | disposition home or self-care (01) ==
LOC: ORPAIN 13:57
PROVIDERS: ATTEND Specialist
DX: Z45.1 Encounter for adjustment and management of infusion pump (principal); T85.615A Breakdown (mechanical) of other nervous system device, implant or graft, initial encounter; M54.50 Low back pain, unspecified
CPT/HCPCS: 62370; J1170; 95991

== ENCOUNTER → 2022-07-29 | Day surgery (SDC) | payer MEDICARE ==
[~2022-07-29] MED LIST changes: +BUPIVACAINE UP TO 8 MG/ML, 31-60 ML SYRINGE MC ONE; +HYDROMORPHONE FOR ANAZAO - PER 4 MG MISCELLANE ONE; -HYDROmorphone 0.5 MG/0.5 ML SYRINGE IVP PRN; -LACTATED RINGERS 1,000 ML IV SCH; -LIDOCAINE 1% (10MG/ML) FOR IV START INTRADERMA PRN
[2022-07-29 13:24] VITALS: BP 167/76; PULSE 89; RESP 16; TEMP 98.9
--- NOTE | 2022-07-29 14:31 | P.PCN ---
Date of Procedure: 07/29/22 Procedure(s) Performed: OPERATION: Intrathecal pain pump analysis, programming and reprogramming, and intrathecal pain pump refill. PREOPERATIVE DIAGNOSES: 1. intrathecal pain pump time for refill. 2. opioid tolerance 3. failed back surgery syndrome lumbar area 4. Malfunction of intrathecal pain pump catheter/disconnection of intrathecal pain pump catheter. POSTOPERATIVE DIAGNOSES: Same as preoperative diagnosis. ANESTHESIA: None. CONDITION: Stable. Description of the procedure; Intrathecal pain pump analysed ,it showed patient currently had reservoir volume[ 21.5 ] mL. The patient is receiving medication Dilaudid 6 mg/ ml, and bupivacaine concentration 3 mg/ml. Patient receiving daily dose of 1.31mg/day and bupivacaine 0.65 mg/day. Pain is well controlled , patient using medication for breakthrough pain orally . The location of the pump ( Right Buttuck ) Prepped with chlorhexidine x3 , then using 22-gauge needle [employer] kit advanced through the pump port, Total of 23 ml removed from the pump, expected volume 21.5 ml , the pump refilled with the new medication total volume 40 ml . The concentration of Dilaudid [ 6] mg /ml , and the bupivacaine concentration [3 ] mg/ml. We will keep the daily dose of Dilaudid [1.31] mg/day and bupivacaine [0.65 ] mg/day ( NO change in the daily does )., patient will follow up with the pain clinic in 3 months. Prescription refill for was given to the patient Zanaflex 4 mg every 6 hours 120 with 2 refills, oxycodone IR 30 mg every 6 hours when necessary dispense 120 with 2 refills Neurontin 400 mg 3 times a day dispense 90 with 2 refills Discussed with the patient today the option of replacing the intrathecal catheter, because the dye study done previously a few months ago assured that that is disconnection between the pain pump and the intrathecal catheter, and I discussed with the patient the option of referring her to a neurosurgeon for revision of the intrathecal catheter, patient preferred to have that done at [facility], patient will be scheduled in the near future for revision/replacement of intrathecal pain catheter
== END ==
LOC: ORPAIN 12:51
PROVIDERS: ATTEND Anesthesiology
DX: M96.1 Postlaminectomy syndrome, not elsewhere classified (principal); T85.615A Breakdown (mechanical) of other nervous system device, implant or graft, initial encounter
CPT/HCPCS: 80307; 62370; G0482; J1170

== ENCOUNTER 2022-09-17 10:20 | Day surgery (SDC) | payer MEDICARE ==
[~2022-09-17 10:20] MED LIST changes: -BUPIVACAINE UP TO 8 MG/ML, 31-60 ML SYRINGE MC ONE; -HYDROMORPHONE FOR ANAZAO - PER 4 MG MISCELLANE ONE; +LACTATED RINGERS 1,000 ML IV SCH; +LIDOCAINE 1% (10MG/ML) FOR IV START INTRADERMA PRN; +ONDANSETRON 4 MG/2 ML VIAL IVP ONE; +Pre Op ABX Message 1 EACH MISC MISCELLANE ONE
--- NOTE | 2022-09-17 11:00 | P.GSHP ---
History of Present Illness H&P Date: 09/17/22 This is 67 years old female with a past medical history significant for failed back surgery syndrome and opioid tolerance, she had intrathecal pain pump implanted several years ago and is we found out that the patient had malfunctioning/disconnection of intrathecal catheter,(did the study which showed that the patient had malfunctioning/ disconnection of the catheter), and the patient here today to have a revision of the intrathecal pain pump catheter, procedure risk and benefits discussed the patient and she agreed with the procedure Past Medical History Past Medical History: Cancer, CVA/TIA, Hypertension, Liver Disease, Musculoskeletal Disorder, Osteoarthritis (OA) Additional Past Medical History / Comment(s): hx. 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 Left rot ator cuff injury 10/2017. bowel tumor-benign. low Vitamin D History of Any Multi-Drug Resistant Organisms: None Reported Past Surgical History: Appendectomy, Back Surgery, Bowel Resection, Cholecystectomy, Hysterectomy Additional Past Surgical History / Comment(s): Pain pump, D&C- SEVERAL , EXPLORATORY LAPAROTOMY X2 lumbar fusions x2, iliac bone bone graft site, Lt wrist. Pain pump replacement 08/29/19, several surgeries right leg for fx. Past Anesthesia/Blood Transfusion Reactions: No Reported Reaction Additional Past Anesthesia/Blood Transfusion Reaction / Comment(s): no problems with prior of blood transfusion Smoking Status: Former smoker - Past Family History Mother Family Medical History: Cancer Additional Family Medical History / Comment(s): Breast cancer. Sister(s) Family Medical History: Cancer, Deep Vein Thrombosis (DVT), Pulmonary Embolus Additional Family Medical History / Comment(s): Ovarian cancer. Father Family Medical History: Cancer, Myocardial Infarction ([place]) Additional Family Medical History / Comment(s): Skin Cancer. Medications and Allergies Home Medications Medication Instructions Recorded Confirmed Type Levothyroxine Sodium [Synthroid] 25 mcg PO HS 03/22/18 09/15/22 History Meloxicam [Mobic] 15 mg PO HS 08/27/19 09/15/22 History ALPRAZolam [Xanax] 1 mg PO HS PRN 08/13/20 09/15/22 History Aspirin EC [Ecotrin Low Dose] 81 mg PO DAILY 08/13/20 09/15/22 History Ergocalciferol [Vitamin D2] 50,000 unit PO TU 10/15/20 09/15/22 History Dilaudid/Bupivicaine Pain Pump 1 dose INTRATHECA CONTINUOUS 10/29/20 09/15/22 History Alendronate Sodium [Fosamax] 70 mg PO TU 03/10/21 09/15/22 History Lisinopril-Hctz 20-12.5 mg 1 tab PO DAILY 06/02/21 09/15/22 History [Zestoretic 20-12.5] Naloxone [Narcan] 2 mg IM DIRECTED PRN 30 Days #1 03/18/22 09/15/22 Rx each tiZANidine HCL [Zanaflex] 4 mg PO TID PRN 04/26/22 09/15/22 History oxyCODONE HCL [oxyCODONE HCL (IR)] 20 mg PO Q6H PRN 30 Days #120 tab 06/21/22 09/15/22 Rx Gabapentin [Neurontin] 400 mg PO TID 07/28/22 09/15/22 History Allergies Allergy/AdvReac Type Severity Reaction Status Date / Time erythromycin base AdvReac Nausea & Verified 09/17/22 10:37 Vomiting Surgical - Exam Vital Signs Temp Pulse Resp BP Pulse Ox 97.4 F L 80 16 165/81 95 09/17/22 10:47 09/17/22 10:47 09/17/22 10:47 09/17/22 10:47 09/17/22 10:47 Physical Examinations : -Constitutiona : Cooperative , not in acute distress . -HEENT : nech : supple , no Lymphadenopathy , normal thyroid size . : eyes : no ptosis , no icterus, no photophobia . - neurologic : Cranial nerve II to XII intact , no focal neurological deffecit . -psychatric : alert , oriented X 3 , appropriate affect , intact judgment and insight . -Lymphatic : no Lymphadenopathy . - musculoskeltal : Cervical Spine motor stregnth in the deltoid and biceps, normal right side , normal Left side motor stregnth biceps and the wrist extensors normal right side ,normal left side . motor stregnth in the triceps muscle . normal Right side , normal Left side Lumber spine moter stegnth lower extremities ,thigh and legs 5/5 Right side , 5/5 Left side Patient pump located in the right buttock area ,and, no sign of infection, no erythema Assessment and Plan Plan: Assessment and plan=1-malfunction/disconnection of intrathecal pain pump catheter, ( confirmed with the dye study) Patient here to have a revision of intrathecal pain pump catheter. Time with Patient: Less than 30
[2022-09-17] MEDS ORDERED: ePHEDrine 50 MG/ML 1 ML VIAL ONE (12:08)
[2022-09-17] MEDS ORDERED: HYDROmorphone (PF) 1 MG/ML ONE (12:08)
[2022-09-17] MEDS ORDERED: LIDOCAINE 2% INJ 20 MG/ML (2 ML VIAL) ONE (12:08)
[2022-09-17] MEDS ORDERED: fentaNYL (PF) 50 MCG/ML 2 ML AMP ONE (12:08)
[2022-09-17] MEDS ORDERED: SUCCINYLCHOLINE CHLORIDE 200 MG/10 ML VIAL IV ONE (12:08)
[2022-09-17] MEDS ORDERED: PROPOFOL 10 MG/ML 20 ML VIAL IV ONE (12:08)
[2022-09-17] MEDS ORDERED: MIDAZOLAM 2 MG/2 ML VIAL ONE (12:08)
[2022-09-17] MEDS ORDERED: BUPIVACAINE (PF) 0.25% 30 ML VIAL SQ ONE ×2 (12:34)
[2022-09-17] MEDS ORDERED: IOPAMIDOL-370 50ML BTL MISCELLANE ONE ×2 (12:51)
[2022-09-17] MEDS ORDERED: ceFAZolin 1,000 MG in SODIUM CHLORIDE 0.9% 1,000 ML IRRIGATION ONE (13:22)
--- NOTE | 2022-09-17 13:56 | FL ---
EXAMINATION TYPE: FL guidance operating room DATE OF EXAM: 09/17/2022 HISTORY: Fluoroscopy time 2 minutes and 2 seconds of fluoroscopy provided. IMPRESSION: 1. Fluoroscopy time.
[2022-09-17] MEDS ORDERED: LACTATED RINGERS 1,000 ML IV ONE (13:57)
[2022-09-17 14:42] VITALS: RESP 18; TEMP 97
--- NOTE | 2022-09-17 14:43 | P.PCN ---
Date of Procedure: 09/17/22 Procedure(s) Performed: Procedure= 1-revision of intrathecal pain pump catheter. Under fluoroscopy guidance 3-electronic analysis of intrathecal pain pump. Preoperative diagnosis=1-mal function intrathecal pain pump catheter 1- postlaminectomy pain syndrome lumbar area. 2-chronic pain syndrome. Postoperative diagnosis= same as preop diagnosis. Conditions= stable. Complications= none. Estimated blood loss= minimal. Anesthesia= general endotracheal intubation. Condition= stable. Estimated blood loss =10 ML Indication for the procedure= patient with a history of chronic pain and history of postlaminectomy pain syndrome , she had intrathecal pain pump implanted several years ago, patient had failed several months ago and later on she complained about not adequate pain control, later on within the dye study to make sure that there is no dye going to the intrathecal canal, when we injected the dye from the side port of the pump, was normal dye going to the intrathecal canal and for this reason we discussed with the patient the option of revision of the intrathecal pain pump Description of the procedure= patient was identified in the preop holding area risks and benefits and alternatives of the procedure discussed with the patient and her and they agreed with proceeding, all the questions answered. Patient placed in prone position after induction of anesthesia, by anesthesia department, the patient was given 2 g of prophylactic antibiotics ancef , and after that the back and buttock area prepped with the DuraPrep 3, then draped in the standard fashion, then local infiltration of the skin and subcu interstitial with the local anesthesia of the bowel program became 0.25% 10 ML, then after that the incision made at the right buttock area and the location of the pump under in the pump removed, and then the catheter was disconnected from the pump and multiple attempt was done to remove the CSF from the catheter was failed, then after that I injected Isovue from the distal end of the catheter that was connected to the pump and showed that there is no, flow of the CSF from the distal end of the catheter to the spinal canal , then after that, lumbar incision done around T10 levels umbilication of the anchor, he did the dissec tion of the subcutaneous tissue and I found the catheter anchor, at this point I exposed the proximal end of the catheter and I cut the catheter passer was exited from the spinal canal, at this point I was able to get free flow of the cerebrospinal fluid at the catheter tip, then I connected the needle with the syringe and I injected Isovue and the Isovue confirmed at its spreading in the spinal canal, and that confirmed that the appropriate placement of the intrathecal catheter, after that I a use tunneling device to tunnel the new catheter, and tunneling device removed and we were able to connect the new catheter to the pump, after we aspirated cerebrospinal fluid from the side port of the pump, then after that the pump placed in the old pocket in the right buttock area and the incision was closed using 2-0 Vicryl and then 3-0 Vicryl for subcu and the same way I was able to close the midline incision that is located around T10 and T9 levels, using 20 and 3-0 Vicryl for Lilliam and in the dressing applied. Patient discharged home from the recovery room in stable condition and she will be started on antibiotic Levaquin 500 mg daily for 10 days. Intrathecal pain pump around before the procedure description the patient currently on the daily dose of Dilaudid 1.3 mg per day and bupivacaine 0.65 mg per day and she had hydromorphone concentration 6 mg per mL and bupivacaine concentration seem milligrams per mL, after we revise the intrathecal pain pump catheter and because the old catheter was infusing in the subcutaneous tissue (dye study confirmed that there is no spread of the dye in the intrathecal canal), I would decrease the intrathecal pain pump medication by 50% , patient would continue to receive Dilaudid concentration 6 mg per mL with the daily dose of 0.64 mg per day, and would continue to get bupivacaine concentration 3 mg per mL with the daily dose of bupivacaine 0.32 mg per day.
[2022-09-17] MEDS: HYDROmorphone 0.5 MG/0.5 ML SYRINGE IVP PRN ×3 (14:51→15:11)
[2022-09-17 15:49] VITALS: BP 170/80; PULSE 85
== END 2022-09-17 16:12 | disposition home or self-care (01) ==
LOC: ORPAIN 10:20
PROVIDERS: ATTEND Specialist
DX: G90.50 Complex regional pain syndrome I, unspecified (principal); I10 Essential (primary) hypertension; K76.9 Liver disease, unspecified; M79.9 Soft tissue disorder, unspecified; M19.90 Unspecified osteoarthritis, unspecified site; Z86.73 Personal history of transient ischemic attack (TIA), and cerebral infarction without residual deficits; Z87.891 Personal history of nicotine dependence; Z90.49 Acquired absence of other specified parts of digestive tract; Z98.84 Bariatric surgery status; Z98.890 Other specified postprocedural states; Z80.3 Family history of malignant neoplasm of breast; Z80.41 Family history of malignant neoplasm of ovary; Z83.2 Family history of diseases of the blood and blood-forming organs and certain disorders involving the immune mechanism; Z88.1 Allergy status to other antibiotic agents
CPT/HCPCS: 62284; 62362; 87070; 87205; C1755; J2250; J0330; J2405; J0690; J3010; J1170 ×2; J2704; Q9967; J2001

== ENCOUNTER → 2022-09-24 | Outpatient (CLI) | payer MEDICARE ==
[2022-09-24 13:24] VITALS: BP 189/68; PULSE 79; RESP 18
--- NOTE | 2022-09-24 13:36 | P.PN ---
Subjective Progress Note Date: 09/24/22 This is for visit for this 67 years old female with a history of chronic pain syndrome, and patient had intrathecal pain pump placed several years ago and last week we did revision of intrathecal catheter, was a dye study did not show any dye in the intrathecal canal, last week when we replace the intrathecal catheter I decreased the intrathecal pain pump medication by 50%, and patient here today to check on her incision and also to adjust her intrathecal pain pump medication if needed, she reported that her pain level is significantly high and her pain level was around 8/10, she denies any withdrawal symptoms she denies any shortness of breath she denies any fever or night sweats,, I checked her s fernandez incision is located appropriately but there is some redness at the lateral border of the incision and also the same for the right buttock incision, the incision is healed okay but there is some redness around the lateral border of the incision, patient denies any discharge and there is no swelling, patient instructed to use triple antibiotic ointments ,at the lateral edge of the incisions, intrathecal pain pump analyzed showed patient currently on intrathecal pain pump infusion Dilaudid 6 mg per mL and bupivacaine 3 mg per mL and patient is receiving the daily dose of medication 0.64 mg per day of Dilaudid and 0.32 mg of bupivacaine per day, and the residual volume is 28.1 ml, because patient complaining of severe pain i.e. discussed with the patient that we will increase the daily dose by 10% and I increased the dose of Dilaudid to 0.71 mg per day which is equal to 10% increase and increase the dose of bupivacaine 20.35 milligrams per day which is equal to 10% increase, and patient given a bolus of the medication with Dilaudid 0.24 mg over 10 minutes, and patient will follow up in the pain clinic in 1 week to check on her incision and also to adjust her intrathecal pain pump infusion. Objective - Vital Signs Vital signs: Vital Signs Temp Pulse 79 09/24/22 12:48 Resp 18 09/24/22 12:48 BP 189/68 09/24/22 12:48 Pulse Ox 98 09/24/22 12:48 FiO2 Intake & Output 09/23/22 09/24/22 09/24/22 18:59 06:59 18:59 Weight 81.647 kg
== END ==
LOC: PNWHC3 11:35
PROVIDERS: ATTEND Anesthesiology
DX: M51.26 Other intervertebral disc displacement, lumbar region (principal); Z88.1 Allergy status to other antibiotic agents; Z87.891 Personal history of nicotine dependence
CPT/HCPCS: 99211

== ENCOUNTER → 2022-10-01 | Outpatient (CLI) | payer MEDICARE ==
[2022-10-01 11:56] VITALS: BP 205/80; PULSE 84; RESP 18
--- NOTE | 2022-10-01 12:20 | P.PCN ---
Date of Procedure: 10/01/22 Procedure(s) Performed: Procedure= analysis of programmable intrathecal pain pump with reprogramming ,no refill. Preop diagnosis=1-failed back surgery syndrome lumbar area. 2-chronic pain syndrome. 3-opioid Tolerance. Postop diagnosis= same as preop diagnosis This is for visit for this 67 years old female with a history of chronic pain syndrome, and patient had intrathecal pain pump placed several years ago and 2 weeks ago , we did ,revision of intrathecal catheter, the dye study did not show any dye in the intrathecal canal, last week when we replace the intrathecal catheter I decreased the intrathecal pain pump medication by 50%, last week I increased her intrathecal pain pump 10% patient was complaining of severe pain, and patient was having some redness around the incision, and the right buttock area and also in the spinal area, today I checked the incision does look healing appropriately there is no sign of infection the skin incision completely healed and there is no sign of infection, no redness no discharge and no erythema, she continues to report that her pain level is significantly high ,and her pain level was around 8/10, she denies any withdrawal symptoms ,she denies any shortness of breath she denies any fever or night sweats, intrathecal pain pump analyzed showed patient currently on intrathecal pain pump infusion Dilaudid 6 mg per mL and bupivacaine 3 mg per mL and patient is receiving the daily dose of medication 0.71 mg per day of Dilaudid, and 0.35 mg of bupivacaine per day, and the residual volume is 27.2 ml, because patient complaining of severe pain ,I discussed with the patient that we will increase the daily dose by 10% ,and I increased the dose of Dilaudid to 0.78 mg per day which is equal to 10% increase and increase the dose of bupivacaine 0.39 mg per day which is equal to 10% increase, and patient given a bolus of the medication with Dilaudid 0.29 mg over 10 minutes, and patient will follow up in the pain clinic in 2 weeks to check on her incision and also to adjust her intrathecal pain pump infusion.
== END ==
LOC: PNWHC3 11:04
PROVIDERS: ATTEND Anesthesiology
DX: M51.24 Other intervertebral disc displacement, thoracic region (principal); M51.26 Other intervertebral disc displacement, lumbar region; Z88.1 Allergy status to other antibiotic agents; Z87.891 Personal history of nicotine dependence
CPT/HCPCS: 99211

== ENCOUNTER → 2022-10-21 | Day surgery (SDC) | payer MEDICARE, SELFPAY ==
[~2022-10-21] MED LIST changes: +BUPIVACAINE UP TO 8 MG/ML, 31-60 ML SYRINGE MC ONE; +HYDROMORPHONE FOR ANAZAO - PER 4 MG MISCELLANE ONE; -LACTATED RINGERS 1,000 ML IV SCH; -LIDOCAINE 1% (10MG/ML) FOR IV START INTRADERMA PRN; -ONDANSETRON 4 MG/2 ML VIAL IVP ONE; -Pre Op ABX Message 1 EACH MISC MISCELLANE ONE
[2022-10-21 13:21] VITALS: BP 181/83; PULSE 94; RESP 18; TEMP 98.1
--- NOTE | 2022-10-21 14:06 | P.PCN ---
Date of Procedure: 10/21/22 Procedure(s) Performed: OPERATION: Intrathecal pain pump analysis, programming and reprogramming, PREOPERATIVE DIAGNOSES: 1. Intrathecal pain therapy, pain is not controlled with the current dose of the medication. 2. 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 ANESTHESIA: None. CONDITION: Stable. Description of the procedure; Intrathecal pain pump analysed ,it showed patient currently had reservoir volume[ 24.6] mL. The patient is receiving medication Dilaudid 6 mg/ ml, and bupivacaine concentration 3 mg/ml. Patient receiving daily dose of Dilaudid 0.78 mg/day and bupivacaine 0.39 mg/day. Pain is well controlled , patient using medication for breakthrough pain orally . The intrathecal pain pump dose increase 10% which is equal to Dilaudid 0.86 mg per day, and bupivacaine 0.43 mg per day This is 67 years old female with a chronic history of severe low back pain patient had intrathecal pain pump implanted several years ago, and she is currently on intrathecal pain therapy should the pain is not controlled with the current regimen for this reason I increased her intrathecal dose , she continued to have severe pain intensity of the pain is 8-9/10 interfere with her quality of life and interfere with her ability to function, and she the patient here today to increase her intrathecal dose again, he increase the dose10 %, patient will continue to use Zanaflex 4 mg 3 times a day and she continued to use the oxycodone 20 mg every 6 hours when necessary for pain, and Neurontin 400 mg 3 times a day prescription for the medications mentioned above given for 3 months, patient denies any side effects of the medication she denies any excessive javed wsiness and sleepiness she denies any suicidal ideation
== END ==
LOC: ORPAIN 12:26
PROVIDERS: ATTEND Specialist
DX: M96.1 Postlaminectomy syndrome, not elsewhere classified (principal)
CPT/HCPCS: 62370; J1170; 99211

== ENCOUNTER → 2023-04-01 | Outpatient (CLI) | payer MEDICARE, SELFPAY ==
--- NOTE | 2023-04-01 13:26 | XR ---
EXAMINATION TYPE: XR thoracic spine complete DATE OF EXAM: 04/01/2023 COMPARISON: NONE HISTORY: Pain TECHNIQUE: 3 views submitted FINDINGS: Alignment is anatomic. There is no compression deformities. Diffuse osteopenia with multilevel moder ate degenerative disc disease most marked in the lower thoracic spine. Postsurgical change seen in t he upper lumbar spine. IMPRESSION: 1. Diffuse osteopenia with multilevel moderate degenerative disc disease most marked involving the lo wer thoracic spine.
--- NOTE | 2023-04-01 13:27 | XR ---
EXAM TYPE: LUMBAR SPINE X RAY SERIES COMPARISON: NONE HISTORY: Pain TECHNIQUE: 4 views are submitted. FINDINGS: There is extensive postsurgical change which is compatible with laminectomy. Transpedicular screws ar e similar in appearance to prior exam. No definite lucency surrounding the transpedicular screws. Ali gnment remains near-anatomic with diffuse osteopenia. Multilevel degenerative disc disease noted. Tino gical clips in the gallbladder fossa. SI joints symmetric. IMPRESSION: 1. Stable postoperative changes.
== END | disposition home or self-care (01) ==
LOC: RADXRMAIN 12:55
PROVIDERS: ATTEND Internal Medicine
DX: M51.34 Other intervertebral disc degeneration, thoracic region (principal); M85.88 Other specified disorders of bone density and structure, other site
CPT/HCPCS: 72072; 72100

== ENCOUNTER → 2023-04-14 | Day surgery (SDC) | payer MEDICARE ==
[2023-04-14 11:57] VITALS: BP 170/89; PULSE 93; RESP 16; TEMP 97.5
--- NOTE | 2023-04-14 12:46 | P.PCN ---
Date of Procedure: 04/14/23 Procedure(s) Performed: OPERATION: Intrathecal pain pump analysis, programming and reprogramming, PREOPERATIVE DIAGNOSES: 1. Intrathecal pain therapy, pain is not controlled with the current dose of the medication. 2. 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 ANESTHESIA: None. CONDITION: Stable. Description of the procedure; Intrathecal pain pump analysed ,it showed patient currently had reservoir volume[ 26.9] mL. The patient is receiving medication Dilaudid 6 mg/ ml, and bupivacaine concentration 3 mg/ml. Patient receiving daily dose of Dilaudid 0.928 mg/day and bupivacaine 0.464 mg/day. Pain is well controlled , patient using medication for breakthrough pain orally . This is 67 years old female with a chronic history of severe low back pain patient had intrathecal pain pump implanted several years ago, , she continued to have severe pain intensity of the pain is 6/10 interfere with her quality of life and interfere with her ability to function, patient will continue to use Zanaflex 4 mg 3 times a day and she continued to use the oxycodone 20 mg every 6 hours when necessary for pain, and Neurontin 400 mg 3 times a day prescription for the medications mentioned above given for 3 months, patient denies any side effects of the medication she denies any excessive drowsiness and sleepiness she denies any suicidal ideation And also complaining of severe numbness and tingling sensation in the lower extremity from the knee to the feet bilaterrally , patient also complaining of severe mid back pain and she has a new x-ray of the thoracic spine showed that she had osteopenia and degenerative disc disease in the thoracic area, patient in the process of getting a referral for spine surgery for evaluation
== END ==
LOC: ORPAIN 11:46
PROVIDERS: ATTEND Specialist
DX: Z45.1 Encounter for adjustment and management of infusion pump (principal); M51.34 Other intervertebral disc degeneration, thoracic region; M85.88 Other specified disorders of bone density and structure, other site
CPT/HCPCS: 62370; J1170

== ENCOUNTER → 2023-06-07 | Outpatient (CLI) | payer MEDICARE ==
--- NOTE | 2023-06-08 08:57 | BD ---
EXAMINATION TYPE: Axial Bone Density DATE OF EXAM: 06/07/2023 CLINICAL HISTORY: 67 years old Female. ICD-10 CODE: N95.1 Post menopausal symptoms Height: 65 in Weight: 169 lbs FRAX RISK QUESTIONS: History of Fracture in Adulthood: rt femur fx age 64; rt ankle fx age 64; lt wrist fx age 62 Secondary Osteoporosis: 3. Menopause before 45: partial hysterectomy age 28 RISK FACTORS HISTORY OF: Hip Fracture (Right): rt hip fx age 64 History of Wrist Fracture: lt wrist age 64 Surgery to Spine/Hip(right): l spine surgery age 38 and 40; rt hip surgery age 64 Family History of Osteoporosis: yes sisters(2) Active: limited Postmenopausal woman: partial hysterectomy age 28 Lost more than 2 inches in height since high school: yes 3" MEDICATIONS: Thyroid Medications: yes Which medication: Levothyroxine How Lon+ years Osteoporosis Medications: yes Which medication: Fosamax How Lon years Additional Medications: calcium, vit d, blood pressure meds, pain meds, multi vit, xanax, gabapentin, muscle relaxer, EXAM MEASUREMENTS: Bone mineral densitometry was performed using the [employer] System. L spine surgery age 38 and 40 rt hip surgery age 64 Bone mineral density about the L hip (g/cm2): 0.885 T Score values are as follows: -----L Neck: -1.5 -----L Total: -1.0 Z Score values are as follows: -----L Neck: -0.1 -----L Total: 0.1 Bone mineral density has: Decreased -6.7 since study of: 12/24/2020 Bone mineral density about the R Wrist (g/cm2): 0.413 T Score values are as follows: -----Dist. R+U: -4.4 -----Prox. R+U: -4.0 -----Radius total: -4.3 Z Score values are as follows: -----Dist. R+U: -2.7 -----Prox. R+U: -2.3 -----Radius total: -2.7 Bone mineral density has: Decreased -2.9 since study of: 12/24/2020 FRAX%s: The graph provided illustrates a 15.2 chance for a major osteoporotic fx and a 1.8chance for the hips probability for fx in 10 years time. IMPRESSION: Osteoporosis (T Score less than -2.5). There is increased fracture risk and therapy is usually indicated based on age. Re-Screen 1-2 years. NOTE: T-SCORE=SD OF THE YOUNG ADULT MEAN.
--- NOTE | 2023-06-08 20:52 | MM ---
Reason for Exam: Screening (asymptomatic). Last mammogram was performed 2 year(s) and 5 month(s) ago. Patient History: Menarche at age 13. First Full-Term at age 21. Hysterectomy at age 27. Postmenopausal. Endometrial cancer, age 25. Estrogen for 8 months starting at age 20. Mother had breast cancer, age 68. Risk Values: Rosaline 5 year model risk: 3.2%. NCI Lifetime model risk: 10.8%. Prior Study Comparison: 11/19/2014 Bilateral Screening Mammogram, [facility]. 02/22/2017 Bilateral Screening Mammogram, [facility]. 12/24/2020 Bilateral Screening Mammogram, [facility]. Tissue Density: The breast tissue is heterogeneously dense. This may lower the sensitivity of mammography. Findings: Analyzed By CAD. There is no suspicious group of microcalcifications or new suspicious mass in either breast. Overall Assessment: Negative, BI-RAD 1 Management: Screening Mammogram of both breasts in 1 year. See note below in regards to patient's increased 5 year Rosaline score. Patient should continue monthly self-breast exams. A clinical breast exam by your physician is recommended on an annual basis. This exam should not preclude additional follow-up of suspicious palpable abnormalities. Note on Rosaline scores and lifetime risk: 1. A Rosaline score greater than 3% is considered moderate risk. If this is the case, consider specialist referral to assess eligibility for a risk reducing agent. 2. If overall lifetime risk for the development of breast cancer is 20% or higher, the patient may qualify for future screening with alternating mammogram and breast MRI. Electronically signed and approved by: Sam Vaughan M.D. Radiologist
== END | disposition home or self-care (01) ==
LOC: RADMAMWWP 15:56
PROVIDERS: ATTEND Internal Medicine
DX: Z12.31 Encounter for screening mammogram for malignant neoplasm of breast (principal); M81.0 Age-related osteoporosis without current pathological fracture; M85.89 Other specified disorders of bone density and structure, multiple sites; Z80.3 Family history of malignant neoplasm of breast; Z78.0 Asymptomatic menopausal state
CPT/HCPCS: 77063; 77067; 77080

== ENCOUNTER → 2023-06-29 | Outpatient (CLI) | payer MEDICARE ==
--- NOTE | 2023-06-30 17:24 | MR ---
EXAMINATION TYPE: MR farhana/kate wo con DATE OF EXAM: 06/29/2023 COMPARISON: None HISTORY: Low back pain, Hx back surgery 1997 & 2000 CONTRAST: None TECHNIQUE: Multiplanar, multiecho imaging on a 3.0 Saray magnet is performed through the thoracic spi ne. Spinal cord maintains normal signal through its visualized course. Vertebral body alignment is normal. Vertebral body heights are preserved. Disc heights are preserved. Diffuse disc desiccation is present. There is some left paracentral minimal disc bulge at the T10-11 level. This has mild anterior thecal sac compression. No cord contact or spinal canal stenosis is present. The T9-10 level there is a moderate size left paracentral disc bulge which extends into the left fora men. Moderate thecal sac compression is present. Correlate radicular symptoms. At the T3-4 level there is a tiny central protrusion with mild anterior thecal sac contact. No AP spi nal canal stenosis is present. No cord contact is evident. At the C7-T1 level there is broad mild disc bulge and central left paracentral region with mild anter ior thecal sac compression. No AP spinal canal stenosis is present. No cord contact is evident. IMPRESSIONS: 1. Moderate-sized left lateral paracentral disc bulge with moderate thecal sac compression. Correlate for radicular symptoms. EXAMINATION TYPE: MR farhana/kate wo con DATE OF EXAM: 06/29/2023 COMPARISON: None HISTORY: Low back pain, Hx back surgery 1997 & 2000 CONTRAST: 0 mL intravenous Gadavist. TECHNIQUE: Multiplanar, multisequence images of the lumbar spine were acquired. FINDINGS: Significant susceptibility artifact is present throughout the lumbar spine. Spinal canal cannot be ev aluated. There is limited visualization of the vertebral bodies. Disc spaces are nondiagnostic. IMPRESSION: 1. MRI Lumbar spine is nondiagnostic
== END | disposition home or self-care (01) ==
LOC: RADMRIMAIN 16:08
PROVIDERS: ATTEND Internal Medicine
DX: M50.33 Other cervical disc degeneration, cervicothoracic region (principal)
CPT/HCPCS: 72146; 72148

== ENCOUNTER → 2023-07-07 | Day surgery (SDC) | payer MEDICARE ==
[2023-07-05 12:32] VITALS: BMI 27.2
[~2023-07-07] MED LIST changes: +LACTATED RINGERS 1,000 ML IV SCH
--- NOTE | 2023-07-07 13:31 | P.PCN ---
Date of Procedure: 07/07/23 Anesthesia: none Surgeon: Lola Shelton Pathology: none sent Condition: stable Disposition: other Description of Procedure: Procedure: Intrathecal pain pump analysis, programming and reprogramming, intrathecal pain pump refill. PREOPERATIVE DIAGNOSES: 1. near empty intrathecal pain pump . 2. 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opioid tolerance 2. failed back surgery syndrome lumbar area ANESTHESIA: None. CONDITION: Stable. Description of the procedure; The intrathecal opioid pump was analyzed and showed a current reservoir residual volume of 27 mls. Skin was prepped with ChloraPrep and draped in a sterile manner. I used 22- gauge needle found in the [employer] intrathecal access to go through the central pump port. 28 mls were withdrawn. Then the new medication was injected incrementally with frequent aspiration to ensure delivery of the new medication inside the pump reservoir. The new medication was infused inside the pump reservoir through a filter provided the [employer] kit. The new medication concentration is: Hydromorphone 6 mg per mL and bupivacaine 3 mg per ml. The pump then was reprogrammed for a new reservoir volume of 40 mls and the rate of Hydromorphone 0.9283 mg/d, bupivacaine 0.4641 mg/d. The patient tolerated the procedure well. The patient denies any new neurologic symptoms in the lower extremities.
== END ==
LOC: ORPAIN 12:55
PROVIDERS: ATTEND Anesthesiology
DX: M96.1 Postlaminectomy syndrome, not elsewhere classified (principal)
CPT/HCPCS: 62370; J1170